=== PATIENT | female | born 1940 | race Caucasian/White ===

== ENCOUNTER 2016-03-17 09:24 | Inpatient (IN) | payer MEDICARE ==
[2016-03-17 09:57] LABS: Add Diff/Slide Review? Slide Review Added; Comments Flag Yes; Hematocrit 43 % (35-47); Hemoglobin 13.9 g/dl (12.0-16.0); Mean Corpuscular HGB Conc 33 g/dl (31-36); Mean Corpuscular Hemoglobin 28 pg (27-31); Mean Corpuscular Volume 87 fL (80-97); Mean Platelet Volume 7 um3 (7.4-10.4); Red Blood Count 4.92 10^6/ul (4.0-5.4); Red Cell Distribution Width 14 % (10.5-15); White Blood Count 11.3 10^3/ul (3.5-10.8)
[2016-03-17] MEDS ORDERED: nitroGLYCERIN DRIP* 25,000 MCG in PREMIX* 0 ML IV ONE (09:58)
[2016-03-17] MEDS ORDERED: Furosemide IV* 10 MG/ML VIAL (40 MG) IV ONE ×3 (09:59→20:00)
--- NOTE | 2016-03-17 10:11 | RAD ---
Indication: Shortness of breath and weakness. Intermittent wheezing. Comparison: March 14, 2016 CT. Technique: Upright AP 0948 hours Report: Approximate 5 cm mass in the RIGHT upper lung zone. Bilateral patchy airspace consolidation and diffuse severe micronodular prominence of interstitial markings. Grossly clear pleural spaces. Negative for pneumothorax. Mild cardiomegaly. Prominent central pulmonary vasculature. IMPRESSION: 1. Large RIGHT upper lobe mass. 2. Diffuse and uniform micronodular interstitial pattern. Consider bronchopneumonia, endobronchial spread of atypical pathogens including TB, metastatic disease, and hypersensitivity pneumonitis. 3. Pulmonary vascular congestion not excluded.
[2016-03-17 10:13] LABS: FIO2 100
[2016-03-17 10:14] LABS: Albumin 3.6 g/dL (3.2-5.2); BUN/Creatinine Ratio 19.3 (8-20); Calcium 8.9 mg/dL (8.6-10.3); EGFR African American 132.6 (>60); EGFR Non-African American 103.1 (>60); Globulin 3.5 g/dL (2-4); Potassium 3.6 mmol/L (3.5-5.0); Total Bilirubin 0.9 mg/dL (0.2-1.0); Total Protein 7.1 g/dL (6.4-8.9)
[2016-03-17 10:17] LABS: PCO2 Arterial 45 mmHg (35-45)
[2016-03-17 10:20] LABS: Troponin I 1.23 ng/mL (<0.04)
[2016-03-17] MEDS ORDERED: LORazepam INJ* 2 MG/ML 1 ML VIAL ONE (10:20)
[2016-03-17 11:08] LABS: EPAP 5; FIO2 100; IPAP 14; Resp Rate 14
[2016-03-17 11:12] LABS: PCO2 Arterial 40 mmHg (35-45)
[2016-03-17 12:59] LABS: Troponin I 1.41 ng/mL (<0.04)
[2016-03-17] MEDS: Morphine INJ* 2 MG/ML 1 ML CARPUJECT IV PRN (13:05)
[2016-03-17] MEDS ORDERED: Albuterol 2.5 MG/3 ML NEB.SOL* (0.083%) INH PRN (13:24)
[2016-03-17] MEDS ORDERED: Aspirin Low Dose CHEW TAB* 81 MG PO ONE (13:27)
--- NOTE | 2016-03-17 13:59 | HP ---
H&P (Free Text) History and Physical: CRITICAL CARE MEDICINE DATE: 03/17/16 TIME: 1225 PRIMARY CARE PROVIDER: ELVA Hui REFERRING PROVIDER: Paulo REASON/CHIEF COMPLAINT: sob HISTORY OF PRESENT ILLNESS: 75 F with underlying copd and recent admission and dc post copd exac with concerning infilitrative lung disease, potential metastatic disease, who stabilzed and was discharged with outpt pulm referral, however re-presenting with sob and hypoxic resp failure. Placed on bipap in ED. concern for ACS as well as troponin positive. ICU consulted REVIEW OF SYSTEMS: As per HPI. PAST MEDICAL HISTORY: As per HPI. HTN, constipation, DJD, right ELLIOT, anxiety, depression with recent loss of spouse MEDICATIONS: Reviewed. ALLERGIES: NSAIDS, statins SOCIAL HISTORY: Reviewed. FAMILY HISTORY: Noncontributory at present. PHYSICAL EXAM: Vital Signs: Reviewed. Hr 70s. RR 20s, on bipap 100% with sats hovering in low 90s. SBP 100-130s Neurologic: awake, communicating, nonfocal HEENT: anicteric, perrl Cardiovascular: distant, S1 S2 Respiratory: fine crackles b/l Abdomen: obese, soft, nt Extremities: post R hip replacement scarring; no edema Access: per LABS: Reviewed. IMAGING: Reviewed. ECG with mild ST ant-lat changes, not much change from baseline. CXR with worsening disease on top of existing. Ct reviewed. MEDICATIONS: Reviewed. ASSESSMENT: 75 F with acute hypoxic resp failure Underlying copd, with some declining disease, but with concern for metastatic lung ca? liver and spinal lesions? Poor diffusion gradient and lymphatic spread NSTEMI sec to demand ischemia PLAN: Neurologic: awake, communicating. advocated low dose morphine to support Cardiovascular: Perfusing, but demand is high. Volume status not grossly overloaded but need to maintain less interstial water and already recieved lasix. Keep asa and consider lovenox tx for 48h, but again more likely demand. Can obtain echo. Cards consult if something changing dramatically with troponin but otherwise would not pursue any acute interventions at this time. Respiratory: bipap currently. discussed with pt and family briefly who state pt has a molst with dDNR and believed DNI, but would confer as she wasn't 100% sure of her wishes at the present. See if we can convert her to HFO2 if her oxygenation and wob can stabilize. Her course is worrisome. Gastrointestinal: npo for the moment and see if her resp status is conducive to diet later today Renal/Metabolic: lasix for now. Infectious Disease: no infective signs. Hematology: stable. asa. Endocrine: reactive hyperglycemia. f/u Musculoskeletal: bedrest at moment and then progress Psych/Social: family at bedside. Pt expresses that her son would make medical decisions for her is she is unable too. ( was prior proxy) Supportive and preventative care as ordered. SUP: po VTE prophylaxis: heparin Disposition: ICU Code Status: DNR Critical Care Time: 45min FRichard Burr DO
--- NOTE | 2016-03-17 14:38 | PN ---
Progress Note - Progress Note Note: CRITICAL CARE MEDICINE DATE: 03/17/16 TIME: 1424 Discussed diagnosis and px with pt, now on vapotherm. She feels better. Remains with generalized depression and sadness. Explained utility of bipap and vapotherm uses. We discussed again DNR/DNI which she agrees with. More family will be coming up. Disposition: ICU Code Status: DNR/DNR Critical Care Time: 10min FRichard Burr, DO
[2016-03-17] MEDS: Potassium Chlor TAB* 20 MEQ TAB.ER PO SCH ×2 (15:36→17:04)
--- NOTE | 2016-03-17 16:27 | ECHO ---
Patient: JACE DEL REAL [facility] Rec#: [id number] : 1940 Date: 03/17/2016 Age: 75y Height: 167 cm / 65.7 in Weight: 90 kg / 198.4 lbs Sex: F BSA: 1.99 Room#: [facility] Admit Date#: 03/17/2016 Type: Inpatient Referring: Malick Burr Reading: Mike Nolan DO Reading: Mike Nolan DO Pecan Grower: Winston Voss RDCS Transthoracic Echocardiogram Indication: NSTEMI BP: 93/47 HR: 72 Rhythm: NSR Findings History: SOB,Hypoxic respiratory failure Technical Comments: The study quality is fair. Completed 1530 Left Ventricle: The left ventricular chamber size is normal. There is no left ventricular hypertrophy. There is normal left ventricular systolic function.There are no obvious segmental wall motion abnormalities noted. The apical segments endocardium is suboptimally visualized. The estimated ejection fraction is 55-60%. Normal left atrial size makes clinically significant diastolic dysfunction unlikely. Left Atrium: The left atrial chamber size is normal. Right Ventricle: The right ventricular chamber size and systolic function are within normal limits. Right Atrium: The right atrial cavity size is normal. Aortic Valve: The aortic valve is trileaflet. There is no evidence of aortic regurgitation. There is no evidence of aortic stenosis. Mitral Valve: The mitral valve leaflets appear normal. There is no evidence of mitral regurgitation. There is no evidence of mitral stenosis. Tricuspid Valve: The tricuspid valve appears normal in structure and function. There is trace tricuspid regurgitation. Unable to estimate the right ventricular systolic pressure. Pulmonic Valve: The pulmonic valve appears normal. There is no evidence of pulmonic regurgitation. There is no pulmonic stenosis. Pericardium: There is no significant pericardial effusion. A pericardial fat pad is visualized. Aorta: There is no dilatation of the ascending aorta. There is no dilatation of the aortic arch. There is no dilation of the aortic root. Pulmonary Artery: The main pulmonary artery is not well visualized. Venous: The inferior vena cava appears normal in size. There is a greater than 50% respiratory change in the inferior vena cava dimension. Conclusions The left ventricular chamber size is normal. There is no left ventricular hypertrophy. The estimated LV ejection fraction is normal at 55-60%. Normal left atrial size No significant valvular abnormalities noted. The right ventricular chamber size and systolic function are within normal limits. Unable to estimate the right ventricular systolic pressure. No prior studies available for comparison at time of interpretation. Measurements Name Value Normal Range RVIDd (AP) 2D 1.9 cm (0.9 - 2.6) RAd ISD 4CH 4 cm (3.4 - 4.9) RA (A4C)W 2.6 cm (2.9 - 4.6) IVSd (2D) 1 cm (0.6 - 1) LVPWd (2D) 0.7 cm (0.6 - 1) LVIDd (2D) 4.2 cm (3.6 - 5.4) LVIDs (2D) 3 cm - LV FS (2D) 28 % (25 - 45) Aortic Annulus 1.8 cm (1.4 - 2.6) Ao root diameter (2D) 2.6 cm (2.1 - 3.5) Ascending Ao 2.5 cm (2.1 - 3.4) Aortic arch 2.3 cm (1.8 - 3.4) LA dimension (AP) 2D 3.7 cm (2.3 - 3.8) LAd ISD 4CH 4.3 cm (2.9 - 5.3) LA ISD 4CH W 2.5 cm (2.5 - 4.5) Name Value Normal Range LA ESV SP 4CH (A/L) 17 ml - LA ESV SP 2CH (A/L) 44 ml - LA ESV BP (A/L) 27 ml - LA ESV BP (A/L) index 13.61 ml/m2 - LA ESV SP 4CH (MOD) 16 ml - LA ESV SP 2CH (MOD) 41 ml - Name Value Normal Range MV E-wave Vmax 0.6 m/sec - MV deceleration time 175 msec - MV A-wave Vmax 0.84 m/sec - MV E:A ratio 0.77 ratio - LV septal e' Vmax 0.05 m/sec - LV lateral e' Vmax 0.06 m/sec - LV E:e' septal ratio 1.2 ratio - LV E:e' lateral ratio 1 ratio - Name Value Normal Range AV Vmax 1.5 m/sec - LVOT diameter 1.7 cm - Name Value Normal Range IVC diameter 0.99 cm - Name Value Normal Range PV Vmax 0.73 m/sec - PV peak gradient 2.13 mmHg -
[2016-03-18 05:56] LABS: Hematocrit 39 % (35-47); Hemoglobin 12.7 g/dl (12.0-16.0); Mean Corpuscular HGB Conc 33 g/dl (31-36); Mean Corpuscular Hemoglobin 28 pg (27-31); Mean Corpuscular Volume 86 fL (80-97); Mean Platelet Volume 7 um3 (7.4-10.4); Red Blood Count 4.49 10^6/ul (4.0-5.4); Red Cell Distribution Width 14 % (10.5-15); White Blood Count 11.4 10^3/ul (3.5-10.8)
[2016-03-18 06:15] LABS: BUN/Creatinine Ratio 28.4 (8-20); Calcium 9.2 mg/dL (8.6-10.3); EGFR African American 110.1 (>60); EGFR Non-African American 85.6 (>60); Magnesium 1.9 mg/dL (1.9-2.7); Phosphorus 3.1 mg/dL (2.5-5.0)
[2016-03-18 06:18] LABS: Troponin I 0.93 ng/mL (<0.04)
[2016-03-18] MEDS ORDERED: Spiriva Inhaler DEVICE* 1 EACH DEVICE ONE (09:00)
[2016-03-18] MEDS: Sertraline* 100 MG TAB PO SCH (09:36)
[2016-03-18] MEDS: Tiotropium CAP.INH* CAP.INH/18 MCG (USE ORDER SET !) INH SCH (09:36)
[2016-03-18] MEDS: Furosemide IV* 10 MG/ML VIAL (40 MG) IV SCH (12:37)
--- NOTE | 2016-03-18 13:12 | PN ---
Progress Note - Progress Note Note: CRITICAL CARE MEDICINE DATE: 03/18/16 TIME: 1250 SUBJECTIVE: Patient seen and examined. PHYSICAL EXAM: Vital Signs: Reviewed. Hr 80s. RR 20s, on vapotherm 100% 40lpm with sats hovering in low 90s to high 80s. Neurologic: awake, communicating, holds capacity HEENT: anicteric, perrl Cardiovascular: distant, S1 S2 Respiratory: fine distant crackles b/l Abdomen: obese, soft, nt Extremities: no edema Access: per LABS: Reviewed. IMAGING: Reviewed. MEDICATIONS: Reviewed. ASSESSMENT: 75 F with acute hypoxic resp failure Underlying copd, with some declining disease, but with concern for widely metastatic lung cancer with liver and spinal tumors NSTEMI sec to demand ischemia Depression PLAN: Neurologic: awake, communicating. advocated low dose morphine to support Cardiovascular: Perfusing and less demand, but still high. Volume status needing to be optimized with further diuretic. echo ok and trop down. asa not even prudent with her disease. Respiratory: continued on HFO2 and bipap tonight, as long as she desires. If she declines, then would not use it further. Gastrointestinal: po diet; comfort food as able not going to meet requirements Renal/Metabolic: lasix again and then probably hold further Infectious Disease: no infective signs. abx not needed Hematology: stable. Endocrine: reactive hyperglycemia ok. Trial steroids to see if any benefit or relief. Musculoskeletal: oob. Psych/Social: family at bedside. Explained dynamics and fears again. Pt gets emotional and appropriately so. D/w her sons further as well and explained I was not expecting her to make it. Have time at the moment with support but likely to be to no avail. Would like to see if she can maintain beyond felix , but even that is unlikely. Supportive and preventative care as ordered. SUP: po VTE prophylaxis: heparin Disposition: ICU Code Status: DNR/DNI Critical Care Time: 35min Filiberto Burr DO
[2016-03-18] MEDS: methylPREDNISolone 125 MG* 2 ML VIAL IV SCH ×2 (14:41→21:16)
[2016-03-18] MEDS: Enoxaparin(*) 40 MG/0.4 ML SYR SUBCUT SCH (14:41)
[2016-03-18] MEDS: Acetaminophen TAB* 325 MG PO PRN ×2 (14:41)
[2016-03-18] MEDS: Aspirin EC Low Dose* 81 MG TAB.EC PO SCH (14:42)
[2016-03-18] MEDS: ALPRAZolam TAB* 0.25 MG PO PRN (21:17)
[2016-03-19] MEDS: diPHENhydraMINE PO* 50 MG PO PRN ×2 (00:53→21:18)
[2016-03-19] MEDS: methylPREDNISolone 125 MG* 2 ML VIAL IV SCH ×3 (05:24→21:18)
[2016-03-19] MEDS: Aspirin EC Low Dose* 81 MG TAB.EC PO SCH (08:41)
[2016-03-19] MEDS: Tiotropium CAP.INH* CAP.INH/18 MCG (USE ORDER SET !) INH SCH (08:41)
[2016-03-19] MEDS: Sertraline* 100 MG TAB PO SCH (08:42)
[2016-03-19] MEDS: Furosemide IV* 10 MG/ML VIAL (40 MG) IV SCH (08:42)
--- NOTE | 2016-03-19 10:33 | PN ---
Progress Note - Progress Note Note: CRITICAL CARE MEDICINE DATE: 03/19/16 TIME: 935 SUBJECTIVE: Patient seen and examined. Son and daughter in law at bedside. PHYSICAL EXAM: looks a touch better Vital Signs: Reviewed. Hr 70s. RR 20s, on vapotherm 100% 40lpm with sats low 90s. Neurologic: awake, communicating, holds capacity. HEENT: anicteric Cardiovascular: distant, S1 S2 Respiratory: distant, no rales Abdomen: obese, soft, nt Extremities: no palpable edema Access: per LABS: Reviewed. IMAGING: Reviewed. MEDICATIONS: Reviewed. ASSESSMENT: 75 F with acute hypoxic resp failure Underlying copd, with some declining disease, but with concern for widely metastatic lung cancer with liver and spinal tumors NSTEMI sec to demand ischemia Depression PLAN: Neurologic: low dose morphine and or xanax as needed. Cardiovascular: Perfusing and vol status ok. Respiratory: Continued on HFO2 with no wean today. can attempt gentle wean this weekend if able to tolerate. no further bipap. Gastrointestinal: po diet Renal/Metabolic: lasix today but Uout falling off and not going to gain much advantage now and renal function may be feeling her hypoxia gradient Infectious Disease: no infective signs. Hematology: stable. as explained to family, no ability nor benefit in pursing Ca workup at present, unless she were to improve. Endocrine: Continued trial steroids which may be having her feeling a touch better. Musculoskeletal: oob. Psych/Social: family at bedside. Pt expresses understanding of plans. Supportive and preventative care as ordered. SUP: po VTE prophylaxis: lovenox Disposition: ICU Code Status: DNR/DNI Critical Care Time: 25min Filiberto Burr DO
[2016-03-19] MEDS: Enoxaparin(*) 40 MG/0.4 ML SYR SUBCUT SCH (16:11)
[2016-03-19] MEDS: Acetaminophen TAB* 325 MG PO PRN (19:23)
[2016-03-19] MEDS: ALPRAZolam TAB* 0.25 MG PO PRN (23:48)
[2016-03-20 05:16] LABS: Hematocrit 40 % (35-47); Hemoglobin 13.3 g/dl (12.0-16.0); Mean Corpuscular HGB Conc 33 g/dl (31-36); Mean Corpuscular Hemoglobin 29 pg (27-31); Mean Corpuscular Volume 86 fL (80-97); Mean Platelet Volume 8 um3 (7.4-10.4); Red Blood Count 4.66 10^6/ul (4.0-5.4); Red Cell Distribution Width 14 % (10.5-15); White Blood Count 18.5 10^3/ul (3.5-10.8)
[2016-03-20] MEDS: methylPREDNISolone 125 MG* 2 ML VIAL IV SCH (05:23)
[2016-03-20 05:27] LABS: BUN/Creatinine Ratio 55.9 (8-20); Calcium 9.1 mg/dL (8.6-10.3); EGFR African American 108.2 (>60); EGFR Non-African American 84.1 (>60); Magnesium 2.1 mg/dL (1.9-2.7); Phosphorus 3.7 mg/dL (2.5-5.0); Potassium 4.3 mmol/L (3.5-5.0)
[2016-03-20] MEDS: Tiotropium CAP.INH* CAP.INH/18 MCG (USE ORDER SET !) INH SCH (08:51)
[2016-03-20] MEDS: Aspirin EC Low Dose* 81 MG TAB.EC PO SCH (09:35)
[2016-03-20] MEDS: Acetaminophen TAB* 325 MG PO PRN (09:35)
[2016-03-20] MEDS: Sertraline* 100 MG TAB PO SCH (09:35)
--- NOTE | 2016-03-20 10:27 | PN ---
Progress Note - Progress Note Note: CRITICAL CARE MEDICINE DATE: 03/20/16 TIME: 835 SUBJECTIVE: Patient seen and examined. Feels ok but not much sleep. PHYSICAL EXAM: same Vital Signs: Reviewed. Hr 70s. RR 20s, on vapotherm 100% 40 lpm with sats low 90s - changed to 35lpm. Neurologic: awake, communicating, pleasant, holds capacity. HEENT: anicteric Cardiovascular: distant, S1 S2 Respiratory: distant, no rales Abdomen: obese, soft, nt Extremities: no palpable edema Access: per LABS: Reviewed. IMAGING: Reviewed. MEDICATIONS: Reviewed. ASSESSMENT: 75 F with acute hypoxic resp failure widely metastatic lung cancer with liver and spinal tumors copd NSTEMI sec to demand ischemia Depression PLAN: Neurologic: low dose morphine/xanax prn - advised her to utilize Cardiovascular: Perfusing and vol status ok to dry. dec vs checks Respiratory: Continued on HFO2 and gentle wean to not inc wob. no further bipap. Gastrointestinal: po diet encouraged Renal/Metabolic: hold off on lasix. bun up sec to lasix and steroids Infectious Disease: no infective signs. Hematology: stable. Endocrine: to prednisone. Musculoskeletal: oob. on feet as able. Psych/Social: family up to date. allow them to enjoy the weekend Supportive and preventative care as ordered. SUP: po VTE prophylaxis: lovenox Disposition: ICU Code Status: DNR/DNI Critical Care Time: 25min FRichard Burr DO
[2016-03-20] MEDS: predniSONE TAB* 20 MG PO SCH (14:49)
[2016-03-20] MEDS: Enoxaparin(*) 40 MG/0.4 ML SYR SUBCUT SCH (15:26)
--- NOTE | 2016-03-20 15:46 | ED ---
Gabriel Abraham Matthew, scribed for Italo Means MD on 03/17/16 at 0947 . Shortness of Breath - HPI Summary HPI Summary: A 75 y/o female presents to the ED with constant SOB since 03/15. The patient has been using 5L of home oxygen. The pain is rated 0/10 in severity. Associated symptoms include cough - brown phlegm. The patient denies any pain, fever, chest pain, and chills. She was recently seen in the ED for hypoxia on . At that time a CT revealed a right lobe lung mass. She is a former smoker. - History of Current Complaint Chief Complaint: EDWeakness Hx Obtained From: Patient Onset/Duration: Gradual Onset, Lasting Days, Still Present Timing: Constant Current Severity: Moderate Dyspnea At: Rest Aggrevating Factors: Nothing Alleviating Factors: Nothing Associated Signs & Symptoms: Cough (Productive) - Allergy/Home Medications Allergies/Adverse Reactions: Allergies Allergy/AdvReac Type Severity Reaction Status Date / Time NSAIDs Allergy Bleeding Verified 03/17/16 10:04 Statins Allergy Leg Cramps Verified 03/17/16 10:04 PMH/Surg Hx/FS Hx/Imm Hx Endocrine/Hematology History: Denies: Hx Diabetes Cardiovascular History: Reports: Hx Hypertension Denies: Hx Pacemaker/ICD Respiratory History: Reports: Hx Chronic Obstructive Pulmonary Disease (COPD), Hx Pneumonia, Other Respiratory Problems/Disorders - WHEEZING SOMETIMES AT NIGHT Denies: Hx Asthma GI History: Reports: Hx Gastroesophageal Reflux Disease History: Reports: Other Problems/Disorders - Stress Incontinence Denies: Hx Renal Disease Musculoskeletal History: Reports: Hx Arthritis, Hx Back Problems - L sciatica Sensory History: Reports: Hx Contacts or Glasses Denies: Hx Hearing Aid Opthamlomology History: Reports: Hx Contacts or Glasses Psychiatric History: Reports: Hx Anxiety - panic attack to ED 12/14/13, Hx Depression Denies: Hx Panic Disorder - Surgical History Surgery Procedure, Year, and Place: T AND A, APENDIX 1970. Right total hip October 2013 Hx Anesthesia Reactions: Yes - SPINAL FOR 3RD CHILD- HEADACHE FOR 2 MONTHS - Family History Family History: no malignant hyperthermia and anesthesia reaction - Social History Alcohol Use: None Substance Use Type: Reports: Prescribed Smoking Status (MU): Former Smoker Type: Cigarettes Amount Used/How Often: 1 PPD X 40 YEARS Length of Time of Smoking/Using Tobacco: 40 years Have You Smoked in the Last Year: No Review of Systems Constitutional: Negative Negative: Fever, Chills Eyes: Negative ENT: Negative Cardiovascular: Negative Negative: Chest Pain Positive: Shortness Of Breath, Cough - brown phlegm Gastrointestinal: Negative Genitourinary: Negative Musculoskeletal: Negative Skin: Negative Neurological: Negative Psychological: Normal All Other Systems Reviewed And Are Negative: Yes Physical Exam - Summary Physical Exam Summary: GENERAL: Awake, alert, oriented, no acute distress, very pleasant. Normal Phonation. HEENT: Head is normocephalic, atraumatic, anicteric sclera, clear conjunctiva, mucous membranes moist, no erythema, no discharge, no lesions, neck is supple, trachea is midline, no JVD CARDIAC: Regular rate and rhythm, S1, S2, no rub, no murmur, no gallop, 2+ radial and pedal pulses bilaterally RESPIRATORY: Breath Sounds presents with diffuse rales. The patient is tachypneic. ABDOMEN: Bowel sounds positive, no bruit, soft, non-tender, no CVA tenderness EXTREMITIES: No edema, warm, dry, moving all extremities in a grossly normal manner NEUROLOGICAL: Mood is appropriate, moving all extremities in a grossly normal manner Triage Information Reviewed: Yes Vital Signs On Initial Exam: Temp Pulse Resp BP Pulse Ox 97.6 F 79 30 137/58 89 03/17/16 09:30 03/17/16 09:30 03/17/16 09:30 03/17/16 09:30 03/17/16 09:30 Vital Signs Reviewed: Yes Diagnostics - Vital Signs Vital Signs Temp Pulse Resp BP Pulse Ox 03/17/16 11:25 99.9 F 83 28 115/57 89 03/17/16 11:20 99.9 F 81 29 118/61 90 03/17/16 11:07 99.9 F 80 27 90 03/17/16 10:36 89 18 86 03/17/16 09:55 97.6 F 86 32 132/68 88 03/17/16 09:30 97.6 F 79 30 137/58 89 - Laboratory Lab Results: Lab Results 03/17/16 03/17/16 03/17/16 Range/Units 09:40 09:40 09:40 WBC 11.3 H (3.5-10.8) 10^3/ul RBC 4.92 (4.0-5.4) 10^6/ul Hgb 13.9 (12.0-16.0) g/dl Hct 43 (35-47) % MCV 87 (80-97) fL MCH 28 (27-31) pg MCHC 33 (31-36) g/dl RDW 14 (10.5-15) % Plt Count 236 (150-450) 10^3/ul MPV 7 L (7.4-10.4) um3 Neut % (Auto) 86.7 H (38-83) % Lymph % (Auto) 5.1 L (25-47) % [place] % (Auto) 6.2 (1-9) % Eos % (Auto) 1.5 (0-6) % Baso % (Auto) 0.5 (0-2) % Absolute Neuts (auto) 9.7 H (1.5-7.7) 10^3/ul Absolute Lymphs (auto) 0.6 L (1.0-4.8) 10^3/ul Absolute Monos (auto) 0.7 (0-0.8) 10^3/ul Absolute Eos (auto) 0.2 (0-0.6) 10^3/ul Absolute Basos (auto) 0.1 (0-0.2) 10^3/ul Absolute Nucleated RBC 0 10^3/ul Nucleated RBC % 0 INR (Anticoag Therapy) 1.07 (0.89-1.11) APTT 27.0 (26.0-36.3) seconds Patient Temperature ABG pH (7.35-7.45) ABG pCO2 (35-45) mmHg ABG pO2 (80-100) mmHg ABG HCO3 (19-31) mmol/L ABG O2 Saturation (95-98) % ABG Base Excess (-2.0-2.0) Respiration Rate O2 Delivery Device Ventilator Type Vent Mode FiO2 Inspiratory Time PEEP Pressure Support Pressure Control EPAP IPAP BiPAP Sodium 136 (133-145) mmol/L Potassium 3.6 (3.5-5.0) mmol/L Chloride 102 (101-111) mmol/L Carbon Dioxide 26 (22-32) mmol/L Anion Gap 8 (2-11) mmol/L BUN 11 (6-24) mg/dL Creatinine 0.57 (0.51-0.95) mg/dL Est GFR ( Amer) 132.6 (>60) Est GFR (Non-Af Amer) 103.1 (>60) BUN/Creatinine Ratio 19.3 (8-20) Glucose 159 H (70-100) mg/dL Lactic Acid (0.5-2.0) mmol/L Calcium 8.9 (8.6-10.3) mg/dL Total Bilirubin 0.90 (0.2-1.0) mg/dL AST 25 (13-39) U/L ALT 12 (7-52) U/L Alkaline Phosphatase 124 H (34-104) U/L Total Creatine Kinase 73 (10-223) U/L Troponin I 1.23 H* (<0.04) ng/mL B-Natriuretic Peptide ( - 100) pg/mL Total Protein 7.1 (6.4-8.9) g/dL Albumin 3.6 (3.2-5.2) g/dL Globulin 3.5 (2-4) g/dL Albumin/Globulin Ratio 1.0 (1-3) 03/17/16 03/17/16 03/17/16 Range/Units 09:40 09:40 10:02 WBC (3.5-10.8) 10^3/ul RBC (4.0-5.4) 10^6/ul Hgb (12.0-16.0) g/dl Hct (35-47) % MCV (80-97) fL MCH (27-31) pg MCHC (31-36) g/dl RDW (10.5-15) % Plt Count (150-450) 10^3/ul MPV (7.4-10.4) um3 Neut % (Auto) (38-83) % Lymph % (Auto) (25-47) % [place] % (Auto) (1-9) % Eos % (Auto) (0-6) % Baso % (Auto) (0-2) % Absolute Neuts (auto) (1.5-7.7) 10^3/ul Absolute Lymphs (auto) (1.0-4.8) 10^3/ul Absolute Monos (auto) (0-0.8) 10^3/ul Absolute Eos (auto) (0-0.6) 10^3/ul Absolute Basos (auto) (0-0.2) 10^3/ul Absolute Nucleated RBC 10^3/ul Nucleated RBC % INR (Anticoag Therapy) (0.89-1.11) APTT (26.0-36.3) seconds Patient Temperature Not Reportable ABG pH 7.42 (7.35-7.45) ABG pCO2 45 (35-45) mmHg ABG pO2 54 L* (80-100) mmHg ABG HCO3 27.7 (19-31) mmol/L ABG O2 Saturation 89.7 L (95-98) % ABG Base Excess 4.0 H (-2.0-2.0) Respiration Rate Not Reportable O2 Delivery Device nrb Ventilator Type Not Reportable Vent Mode Not Reportable FiO2 100 Inspiratory Time Not Reportable PEEP Not Reportable Pressure Support Not Reportable Pressure Control Not Reportable EPAP Not Reportable IPAP Not Reportable BiPAP Not Reportable Sodium (133-145) mmol/L Potassium (3.5-5.0) mmol/L Chloride (101-111) mmol/L Carbon Dioxide (22-32) mmol/L Anion Gap (2-11) mmol/L BUN (6-24) mg/dL Creatinine (0.51-0.95) mg/dL Est GFR ( Amer) (>60) Est GFR (Non-Af Amer) (>60) BUN/Creatinine Ratio (8-20) Glucose (70-100) mg/dL Lactic Acid 1.2 (0.5-2.0) mmol/L Calcium (8.6-10.3) mg/dL Total Bilirubin (0.2-1.0) mg/dL AST (13-39) U/L ALT (7-52) U/L Alkaline Phosphatase (34-104) U/L Total Creatine Kinase (10-223) U/L Troponin I (<0.04) ng/mL B-Natriuretic Peptide 157 H ( - 100) pg/mL Total Protein (6.4-8.9) g/dL Albumin (3.2-5.2) g/dL Globulin (2-4) g/dL Albumin/Globulin Ratio (1-3) //16 Range/Units 11:08 WBC (3.5-10.8) 10^3/ul RBC (4.0-5.4) 10^6/ul Hgb (12.0-16.0) g/dl Hct (35-47) % MCV (80-97) fL MCH (27-31) pg MCHC (31-36) g/dl RDW (10.5-15) % Plt Count (150-450) 10^3/ul MPV (7.4-10.4) um3 Neut % (Auto) (38-83) % Lymph % (Auto) (25-47) % [place] % (Auto) (1-9) % Eos % (Auto) (0-6) % Baso % (Auto) (0-2) % Absolute Neuts (auto) (1.5-7.7) 10^3/ul Absolute Lymphs (auto) (1.0-4.8) 10^3/ul Absolute Monos (auto) (0-0.8) 10^3/ul Absolute Eos (auto) (0-0.6) 10^3/ul Absolute Basos (auto) (0-0.2) 10^3/ul Absolute Nucleated RBC 10^3/ul Nucleated RBC % INR (Anticoag Therapy) (0.89-1.11) APTT (26.0-36.3) seconds Patient Temperature Not Reportable ABG pH 7.41 (7.35-7.45) ABG pCO2 40 (35-45) mmHg ABG pO2 63 L (80-100) mmHg ABG HCO3 25.3 (19-31) mmol/L ABG O2 Saturation 94.3 L (95-98) % ABG Base Excess 0.7 (-2.0-2.0) Respiration Rate 14 O2 Delivery Device Ventilator Type Not Reportable Vent Mode st FiO2 100 Inspiratory Time Not Reportable PEEP Not Reportable Pressure Support Not Reportable Pressure Control Not Reportable EPAP 5 IPAP 14 BiPAP Not Reportable Sodium (133-145) mmol/L Potassium (3.5-5.0) mmol/L Chloride (101-111) mmol/L Carbon Dioxide (22-32) mmol/L Anion Gap (2-11) mmol/L BUN (6-24) mg/dL Creatinine (0.51-0.95) mg/dL Est GFR ( Amer) (>60) Est GFR (Non-Af Amer) (>60) BUN/Creatinine Ratio (8-20) Glucose (70-100) mg/dL Lactic Acid (0.5-2.0) mmol/L Calcium (8.6-10.3) mg/dL Total Bilirubin (0.2-1.0) mg/dL AST (13-39) U/L ALT (7-52) U/L Alkaline Phosphatase (34-104) U/L Total Creatine Kinase (10-223) U/L Troponin I (<0.04) ng/mL B-Natriuretic Peptide ( - 100) pg/mL Total Protein (6.4-8.9) g/dL Albumin (3.2-5.2) g/dL Globulin (2-4) g/dL Albumin/Globulin Ratio (1-3) Result Diagrams: 03/20/16 05:00 03/20/16 05:00 Lab Statement: Any lab studies that have been ordered have been reviewed, and results considered in the medical decision making process. - Radiology CXR Xray Interpretation: Positive (See Comments) - IMPRESSION: 1. Large RIGHT upper lobe mass. 2. Diffuse and uniform micronodular interstitial pattern. Consider bronchopneumonia, endobronchial spread of atypical pathogens including TB, metastatic disease, and hypersensitivity pneumonitis. 3. Pulmonary vascular congestion not excluded. Radiology Interpretation Completed By: Radiologist - EKG 09:30 Cardiac Rate: NL - 79 bpm EKG Rhythm: Sinus Rhythm EKG Interpretation: T Wave Inversion V3; Flattened T Waves in V4,V5,V6; Biphasic in V2; 10:37 Cardiac Rate: NL - 82 bpm EKG Rhythm: Sinus Rhythm EKG Interpretation: Minimal ST elevation Course/Dx - Course Assessment/Plan: A 75 y/o female presents to the ED with SOB. The patient denies any pain, fever, chest pain, and chills. EKG shows T Wave Inversion V3; Flattened T Waves in V4,V5,V6; Biphasic in V2. Repeat EKG shows minimal ST elevation. Labs were reviewed and show an elevated Troponin level of 1.23. CXR reveals Large RIGHT upper lobe mass and diffuse and uniform micronodular interstitial pattern. The case was discussed with Dr. Wills who will admit the patient and Dr. Nolan who recommended a repeat troponin in one hour. - Diagnoses Provider Diagnoses: chf - Physician Notifications Discussed Care of Patient With: Dr. Wills (Hospitalist) at 10:00 -- Notified of patient's history and will admit the patient. Dr. Nolan (Vamp Throater) at 10:32 -- Notified of patient's history and recommneds another Troponin in 1 hour. Discharge - Discharge Plan Condition: Stable Disposition: ADMITTED TO [facility] The documentation as recorded by the Gabriel phan Matthew accurately reflects the service I personally performed and the decisions made by , Italo Means MD.
[2016-03-20] MEDS: diPHENhydraMINE PO* 50 MG PO PRN (21:05)
[2016-03-20] MEDS: ALPRAZolam TAB* 0.25 MG PO PRN (21:06)
[2016-03-21] MEDS: Tiotropium CAP.INH* CAP.INH/18 MCG (USE ORDER SET !) INH SCH (07:34)
[2016-03-21] MEDS: predniSONE TAB* 20 MG PO SCH (09:35)
[2016-03-21] MEDS: Sertraline* 100 MG TAB PO SCH (09:35)
[2016-03-21] MEDS: Aspirin EC Low Dose* 81 MG TAB.EC PO SCH (09:35)
--- NOTE | 2016-03-21 10:20 | PN ---
Progress Note - Progress Note Note: CRITICAL CARE MEDICINE DATE: 03/21/16 TIME: 825 SUBJECTIVE: Patient seen and examined. Feels ok but still not much sleep. PHYSICAL EXAM: same Vital Signs: Reviewed. Hr 70s. RR 20s, on vapotherm 100% 30 lpm with sats mid 90s Neurologic: awake, communicating, pleasant, holds capacity. HEENT: anicteric Cardiovascular: distant, S1 S2 Respiratory: distant, no rales Abdomen: obese, soft, nt Extremities: no palpable edema Access: per LABS: Reviewed. IMAGING: Reviewed. MEDICATIONS: Reviewed. 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 try trazadone tonight Cardiovascular: Perfusing and vol status ok. Respiratory: HFO2 slow wean, but happy to see we are actually weaning. IS. oob. Gastrointestinal: po diet encouraged Renal/Metabolic: f/u labs in another day Infectious Disease: no infective signs. Hematology: stable. Endocrine: prednisone course. Musculoskeletal: oob. Psych/Social: explained to her to enjoy the day and then we can all talk this week about longer term and week plans. Supportive and preventative care as ordered. SUP: po VTE prophylaxis: lovenox Disposition: ICU Code Status: DNR/DNI Critical Care Time: 25min Filiberto Burr DO
[2016-03-21] MEDS: Acetaminophen TAB* 325 MG PO PRN (12:06)
[2016-03-21] MEDS: Enoxaparin(*) 40 MG/0.4 ML SYR SUBCUT SCH (17:41)
[2016-03-21] MEDS: diPHENhydraMINE PO* 50 MG PO PRN (21:28)
[2016-03-22] MEDS: ALPRAZolam TAB* 0.25 MG PO PRN ×3 (00:48→21:26)
[2016-03-22] MEDS: Acetaminophen TAB* 325 MG PO PRN (08:20)
[2016-03-22] MEDS: Sertraline* 100 MG TAB PO SCH (08:20)
[2016-03-22] MEDS: predniSONE TAB* 20 MG PO SCH (08:20)
[2016-03-22] MEDS: Aspirin EC Low Dose* 81 MG TAB.EC PO SCH (08:20)
[2016-03-22] MEDS: Morphine INJ* 2 MG/ML 1 ML CARPUJECT IV PRN ×2 (08:26→21:26)
--- NOTE | 2016-03-22 11:48 | PN ---
Progress Note - Progress Note Note: CRITICAL CARE MEDICINE DATE: 03/22/16 TIME: 930 SUBJECTIVE: Patient seen and examined. Feels ok. PHYSICAL EXAM: same Vital Signs: Reviewed. Hr 70s. RR 20s, on vapotherm 100% downt to 25 lpm with sats low 90s; wob maintained Neurologic: communicating, pleasant, holds capacity. HEENT: anicteric Cardiovascular: distant, S1 S2 Respiratory: distant, no rales Abdomen: obese, soft, nt Extremities: no palpable edema, can appear cyanotic distally Access: per LABS: Reviewed. IMAGING: Reviewed. MEDICATIONS: Reviewed. ASSESSMENT: 75 F with acute hypoxic resp failure widely metastatic lung cancer liver and spinal tumors copd NSTEMI sec to demand ischemia -stable Depression PLAN: Neurologic: low dose morphine/xanax prn. try trazadone tonight Cardiovascular: Perfusing and vol status ok. can hold off on asa given palliative needs Respiratory: HFO2 slow wean continued Gastrointestinal: po diet encouraged Renal/Metabolic: f/u labs in another day Infectious Disease: no infective signs. Hematology: stable. Endocrine: prednisone course. Musculoskeletal: oob. Psych/Social: will re-discuss with her and family today regarding plans of care. ask palliative to eval with hopefully to improve enough to go home on hospice. Supportive and preventative care as ordered. SUP: po VTE prophylaxis: lovenox Disposition: ICU of high floww Code Status: DNR/DNI Critical Care Time: 25min FRichard Burr DO
[2016-03-22] MEDS: Enoxaparin(*) 40 MG/0.4 ML SYR SUBCUT SCH (16:56)
[2016-03-22] MEDS: traZODone TAB* 50 MG TAB PO PRN (22:33)
[2016-03-23] MEDS: predniSONE TAB* 20 MG PO SCH (09:01)
[2016-03-23] MEDS: Morphine ORAL CONCENTRATE* 5 MG/0.25 ML ORAL.SYRIN SL PRN ×3 (09:02→17:00)
[2016-03-23] MEDS: Sertraline* 100 MG TAB PO SCH (09:02)
--- NOTE | 2016-03-23 14:03 | PN ---
Subjective Date of Service: 03/23/16 Interval History: Patient's biggest complaint is she tossed and turned last night. Pain under adequate control. Objective Active Medications: Acetaminophen (Tylenol Tab*) 650 mg PO Q6H PRN PRN Reason: PAIN Last Admin: 03/22/16 08:20 Dose: 650 mg Albuterol (Ventolin 2.5 Mg/3 Ml Neb.Norma*) 2.5 mg INH Q4H PRN PRN Reason: SOB/WHEEZING Alprazolam (Xanax Tab*) 0.25 mg PO TID PRN PRN Reason: ANXIETY Last Admin: 03/22/16 21:26 Dose: 0.25 mg Diphenhydramine HCl (Benadryl Po*) 50 mg PO BEDTIME PRN PRN Reason: SLEEP Last Admin: 03/21/16 21:28 Dose: 50 mg Enoxaparin Sodium (Lovenox(*)) 40 mg SUBCUT Q24H [facility] Last Admin: 03/22/16 16:56 Dose: 40 mg Morphine Sulfate (Morphine Oral Concentrate*) 2.5 mg SL Q2H PRN PRN Reason: PAIN Last Admin: 03/23/16 11:54 Dose: 2.5 mg Morphine Sulfate (Morphine Inj (Syringe)*) 2 mg IV Q1H PRN PRN Reason: PAIN Last Admin: 03/22/16 21:26 Dose: 2 mg Ondansetron HCl (Zofran Inj*) 4 mg IV Q6H PRN PRN Reason: NAUSEA Prednisone (Deltasone Tab*) 40 mg PO DAILY [facility] Last Admin: 03/23/16 09:01 Dose: 40 mg Sertraline HCl (Zoloft*) 100 mg PO DAILY [facility] Last Admin: 03/23/16 09:02 Dose: 100 mg Trazodone HCl (Desyrel Tab*) 50 mg PO BEDTIME PRN PRN Reason: insomnia Last Admin: 03/22/16 22:33 Dose: 50 mg Vital Signs 03/22/16 03/22/16 03/22/16 15:00 15:16 16:00 Temperature 99.0 F Pulse Rate 72 74 Respiratory 22 25 Rate Blood Pressure 127/47 112/54 (mmHg) O2 Sat by Pulse 88 90 Oximetry 03/22/16 03/22/16 03/22/16 16:59 17:00 18:00 Temperature Pulse Rate 79 84 Respiratory 16 20 22 Rate Blood Pressure 143/65 140/68 (mmHg) O2 Sat by Pulse 86 87 Oximetry 03/22/16 03/22/16 03/22/16 19:00 19:40 19:50 Temperature 97.4 F Pulse Rate 89 Respiratory 26 24 Rate Blood Pressure 113/52 (mmHg) O2 Sat by Pulse 85 Oximetry 03/22/16 03/22/16 03/22/16 20:00 21:00 21:26 Temperature Pulse Rate 74 83 Respiratory 24 20 24 Rate Blood Pressure 123/52 121/107 (mmHg) O2 Sat by Pulse 88 80 Oximetry 03/22/16 03/22/16 03/22/16 22:00 23:00 23:02 Temperature Pulse Rate 73 70 68 Respiratory 22 21 22 Rate Blood Pressure 102/53 81/37 75/36 (mmHg) O2 Sat by Pulse 86 86 86 Oximetry 03/22/16 03/22/16 03/22/16 23:04 23:06 23:33 Temperature 97.4 F Pulse Rate 69 70 Respiratory 21 26 Rate Blood Pressure 79/33 91/40 (mmHg) O2 Sat by Pulse 86 86 Oximetry 03/22/16 03/23/16 03/23/16 23:47 00:00 00:01 Temperature Pulse Rate 65 65 Respiratory 20 21 22 Rate Blood Pressure 104/50 (mmHg) O2 Sat by Pulse 88 88 Oximetry 03/23/16 03/23/16 03/23/16 01:00 02:00 03:00 Temperature Pulse Rate 70 64 74 Respiratory 22 23 22 Rate Blood Pressure 101/42 107/50 125/44 (mmHg) O2 Sat by Pulse 90 90 89 Oximetry 03/23/16 03/23/16 03/23/16 03:50 04:00 05:00 Temperature 98.6 F Pulse Rate 73 73 Respiratory 25 25 Rate Blood Pressure 111/41 113/41 (mmHg) O2 Sat by Pulse 84 90 Oximetry 03/23/16 03/23/16 03/23/16 06:00 07:00 07:36 Temperature 97.8 F Pulse Rate 74 75 Respiratory 21 25 Rate Blood Pressure 129/50 111/45 (mmHg) O2 Sat by Pulse 91 83 Oximetry 03/23/16 03/23/16 03/23/16 08:00 09:00 10:00 Temperature Pulse Rate 66 85 82 Respiratory 8 27 26 Rate Blood Pressure 106/55 100/48 104/39 (mmHg) O2 Sat by Pulse 91 85 87 Oximetry 03/23/16 03/23/16 03/23/16 11:00 11:40 11:58 Temperature 98.1 F Pulse Rate 79 Respiratory 24 21 Rate Blood Pressure 114/45 (mmHg) O2 Sat by Pulse 86 Oximetry 03/23/16 03/23/16 12:00 13:00 Temperature Pulse Rate 77 74 Respiratory 23 20 Rate Blood Pressure 123/50 103/40 (mmHg) O2 Sat by Pulse 89 88 Oximetry Oxygen Devices in Use Now: Nasal Cannula Appearance: Elderly woman lying in bed in NAD Eyes: No Scleral Icterus Ears/Nose/Mouth/Throat: Mucous Membranes Moist Neck: NL Appearance and Movements; NL JVP, No Thyroid Enlargement, Masses Respiratory: - - bilateral rales Abdominal: NL Sounds; No Tenderness; No Distention, No Hepatosplenomegaly Lymphatic: No Cervical Adenopathy Extremities: No Clubbing, Cyanosis Skin: No Rash or Ulcers Neurological: Alert and Oriented x 3 Result Diagrams: 03/20/16 05:00 03/20/16 05:00 Additional Lab and Data: Lab Results 03/17/16 03/17/16 03/17/16 Range/Units 09:40 09:40 09:40 WBC 11.3 H (3.5-10.8) 10^3/ul RBC 4.92 (4.0-5.4) 10^6/ul Hgb 13.9 (12.0-16.0) g/dl Hct 43 (35-47) % MCV 87 (80-97) fL MCH 28 (27-31) pg MCHC 33 (31-36) g/dl RDW 14 (10.5-15) % Plt Count 236 (150-450) 10^3/ul MPV 7 L (7.4-10.4) um3 Neut % (Auto) 86.7 H (38-83) % Lymph % (Auto) 5.1 L (25-47) % [place] % (Auto) 6.2 (1-9) % Eos % (Auto) 1.5 (0-6) % Baso % (Auto) 0.5 (0-2) % Absolute Neuts (auto) 9.7 H (1.5-7.7) 10^3/ul Absolute Lymphs (auto) 0.6 L (1.0-4.8) 10^3/ul Absolute Monos (auto) 0.7 (0-0.8) 10^3/ul Absolute Eos (auto) 0.2 (0-0.6) 10^3/ul Absolute Basos (auto) 0.1 (0-0.2) 10^3/ul Absolute Nucleated RBC 0 10^3/ul Nucleated RBC % 0 INR (Anticoag Therapy) 1.07 (0.89-1.11) APTT 27.0 (26.0-36.3) seconds Patient Temperature ABG pH (7.35-7.45) ABG pCO2 (35-45) mmHg ABG pO2 (80-100) mmHg ABG HCO3 (19-31) mmol/L ABG O2 Saturation (95-98) % ABG Base Excess (-2.0-2.0) Respiration Rate O2 Delivery Device Ventilator Type Vent Mode FiO2 Inspiratory Time PEEP Pressure Support Pressure Control EPAP IPAP BiPAP Sodium 136 (133-145) mmol/L Potassium 3.6 (3.5-5.0) mmol/L Chloride 102 (101-111) mmol/L Carbon Dioxide 26 (22-32) mmol/L Anion Gap 8 (2-11) mmol/L BUN 11 (6-24) mg/dL Creatinine 0.57 (0.51-0.95) mg/dL Est GFR ( Amer) 132.6 (>60) Est GFR (Non-Af Amer) 103.1 (>60) BUN/Creatinine Ratio 19.3 (8-20) Glucose 159 H (70-100) mg/dL Lactic Acid (0.5-2.0) mmol/L Calcium 8.9 (8.6-10.3) mg/dL Total Bilirubin 0.90 (0.2-1.0) mg/dL AST 25 (13-39) U/L ALT 12 (7-52) U/L Alkaline Phosphatase 124 H (34-104) U/L Total Creatine Kinase 73 (10-223) U/L Troponin I 1.23 H* (<0.04) ng/mL B-Natriuretic Peptide ( - 100) pg/mL Total Protein 7.1 (6.4-8.9) g/dL Albumin 3.6 (3.2-5.2) g/dL Globulin 3.5 (2-4) g/dL Albumin/Globulin Ratio 1.0 (1-3) 03/17/16 03/17/16 03/17/16 Range/Units 09:40 09:40 10:02 WBC (3.5-10.8) 10^3/ul RBC (4.0-5.4) 10^6/ul Hgb (12.0-16.0) g/dl Hct (35-47) % MCV (80-97) fL MCH (27-31) pg MCHC (31-36) g/dl RDW (10.5-15) % Plt Count (150-450) 10^3/ul MPV (7.4-10.4) um3 Neut % (Auto) (38-83) % Lymph % (Auto) (25-47) % Meade % (Auto) (1-9) % Eos % (Auto) (0-6) % Baso % (Auto) (0-2) % Absolute Neuts (auto) (1.5-7.7) 10^3/ul Absolute Lymphs (auto) (1.0-4.8) 10^3/ul Absolute Monos (auto) (0-0.8) 10^3/ul Absolute Eos (auto) (0-0.6) 10^3/ul Absolute Basos (auto) (0-0.2) 10^3/ul Absolute Nucleated RBC 10^3/ul Nucleated RBC % INR (Anticoag Therapy) (0.89-1.11) APTT (26.0-36.3) seconds Patient Temperature Not Reportable ABG pH 7.42 (7.35-7.45) ABG pCO2 45 (35-45) mmHg ABG pO2 54 L* (80-100) mmHg ABG HCO3 27.7 (19-31) mmol/L ABG O2 Saturation 89.7 L (95-98) % ABG Base Excess 4.0 H (-2.0-2.0) Respiration Rate Not Reportable O2 Delivery Device nrb Ventilator Type Not Reportable Vent Mode Not Reportable FiO2 100 Inspiratory Time Not Reportable PEEP Not Reportable Pressure Support Not Reportable Pressure Control Not Reportable EPAP Not Reportable IPAP Not Reportable BiPAP Not Reportable Sodium (133-145) mmol/L Potassium (3.5-5.0) mmol/L Chloride (101-111) mmol/L Carbon Dioxide (22-32) mmol/L Anion Gap (2-11) mmol/L BUN (6-24) mg/dL Creatinine (0.51-0.95) mg/dL Est GFR ( Amer) (>60) Est GFR (Non-Af Amer) (>60) BUN/Creatinine Ratio (8-20) Glucose (70-100) mg/dL Lactic Acid 1.2 (0.5-2.0) mmol/L Calcium (8.6-10.3) mg/dL Total Bilirubin (0.2-1.0) mg/dL AST (13-39) U/L ALT (7-52) U/L Alkaline Phosphatase (34-104) U/L Total Creatine Kinase (10-223) U/L Troponin I (<0.04) ng/mL B-Natriuretic Peptide 157 H ( - 100) pg/mL Total Protein (6.4-8.9) g/dL Albumin (3.2-5.2) g/dL Globulin (2-4) g/dL Albumin/Globulin Ratio (1-3) 03/17/ Range/Units 11:08 WBC (3.5-10.8) 10^3/ul RBC (4.0-5.4) 10^6/ul Hgb (12.0-16.0) g/dl Hct (35-47) % MCV (80-97) fL MCH (27-31) pg MCHC (31-36) g/dl RDW (10.5-15) % Plt Count (150-450) 10^3/ul MPV (7.4-10.4) um3 Neut % (Auto) (38-83) % Lymph % (Auto) (25-47) % Meade % (Auto) (1-9) % Eos % (Auto) (0-6) % Baso % (Auto) (0-2) % Absolute Neuts (auto) (1.5-7.7) 10^3/ul Absolute Lymphs (auto) (1.0-4.8) 10^3/ul Absolute Monos (auto) (0-0.8) 10^3/ul Absolute Eos (auto) (0-0.6) 10^3/ul Absolute Basos (auto) (0-0.2) 10^3/ul Absolute Nucleated RBC 10^3/ul Nucleated RBC % INR (Anticoag Therapy) (0.89-1.11) APTT (26.0-36.3) seconds Patient Temperature Not Reportable ABG pH 7.41 (7.35-7.45) ABG pCO2 40 (35-45) mmHg ABG pO2 63 L (80-100) mmHg ABG HCO3 25.3 (19-31) mmol/L ABG O2 Saturation 94.3 L (95-98) % ABG Base Excess 0.7 (-2.0-2.0) Respiration Rate 14 O2 Delivery Device Ventilator Type Not Reportable Vent Mode st FiO2 100 Inspiratory Time Not Reportable PEEP Not Reportable Pressure Support Not Reportable Pressure Control Not Reportable EPAP 5 IPAP 14 BiPAP Not Reportable Sodium (133-145) mmol/L Potassium (3.5-5.0) mmol/L Chloride (101-111) mmol/L Carbon Dioxide (22-32) mmol/L Anion Gap (2-11) mmol/L BUN (6-24) mg/dL Creatinine (0.51-0.95) mg/dL Est GFR ( Amer) (>60) Est GFR (Non-Af Amer) (>60) BUN/Creatinine Ratio (8-20) Glucose (70-100) mg/dL Lactic Acid (0.5-2.0) mmol/L Calcium (8.6-10.3) mg/dL Total Bilirubin (0.2-1.0) mg/dL AST (13-39) U/L ALT (7-52) U/L Alkaline Phosphatase (34-104) U/L Total Creatine Kinase (10-223) U/L Troponin I (<0.04) ng/mL B-Natriuretic Peptide ( - 100) pg/mL Total Protein (6.4-8.9) g/dL Albumin (3.2-5.2) g/dL Globulin (2-4) g/dL Albumin/Globulin Ratio (1-3) Microbiology and Other Data: Microbiology 03/17/16 14:00 Nasal Screen MRSA (PCR)(NIMA) - Final Nasal Mrsa Negative Assess/Plan/Problems-Billing Assessment: 75 year old woman admitted to [facility] with hypoxic respiratory respiratory failure. - Patient Problems (1) Respiratory failure Current Visit: Yes Status: Acute Code(s): J96.90 - RESPIRATORY FAILURE, UNSP , UNSP W HYPOXIA OR HYPERCAPNIA SNOMED Code(s): 318021357 Comment: Improved but still requiring vapotherm. Down to 20. (2) Metastatic lung cancer (metastasis from lung to other site) Current Visit: Yes Status: Acute Code(s): C34.90 - MALIGNANT NEOPLASM OF UNSP PART OF UNSP BRONCHUS OR LUNG SNOMED Code(s): 353031182 Comment: Will likely go to hospice on dc. (3) NSTEMI (non-ST elevated myocardial infarction) Current Visit: Yes Status: Acute Code(s): I21.4 - NON-ST ELEVATION (NSTEMI) MYOCARDIAL INFARCTION SNOMED Code(s): 75675243 Comment: Likely from demand ischemia from hypoxic respiratory failure. Not actively managing as emphasis on comfort care. (4) DVT prophylaxis Current Visit: No Status: Acute Code(s): QSA2242 - SNOMED Code(s): 457399731 Comment: Lovenox (5) DNR (do not resuscitate) Current Visit: No Status: Acute
[2016-03-23] MEDS: Enoxaparin(*) 40 MG/0.4 ML SYR SUBCUT SCH (15:22)
[2016-03-23] MEDS: Morphine INJ* 2 MG/ML 1 ML CARPUJECT IV PRN (19:51)
[2016-03-23] MEDS: Acetaminophen TAB* 325 MG PO PRN (21:35)
[2016-03-23] MEDS: diPHENhydraMINE PO* 50 MG PO PRN (21:35)
[2016-03-23] MEDS: ALPRAZolam TAB* 0.25 MG PO PRN (21:36)
[2016-03-24] MEDS: Morphine INJ* 2 MG/ML 1 ML CARPUJECT IV PRN ×4 (00:47→21:58)
[2016-03-24] MEDS: Sertraline* 100 MG TAB PO SCH (08:55)
[2016-03-24] MEDS: predniSONE TAB* 20 MG PO SCH (08:55)
[2016-03-24] MEDS: Ondansetron INJ* 2 MG/ML VIAL IV PRN (10:47)
[2016-03-24] MEDS: Acetaminophen TAB* 325 MG PO PRN (13:53)
--- NOTE | 2016-03-24 14:26 | PN ---
Subjective Date of Service: 03/24/16 Interval History: Patient feels about the same. Mostly weak. Not complaining of too much SOB or pain. Wants to get home soon and go on hospice. Objective Active Medications: Acetaminophen (Tylenol Tab*) 650 mg PO Q6H PRN PRN Reason: PAIN Last Admin: 03/24/16 13:53 Dose: 650 mg Albuterol (Ventolin 2.5 Mg/3 Ml Neb.Norma*) 2.5 mg INH Q4H PRN PRN Reason: SOB/WHEEZING Alprazolam (Xanax Tab*) 0.25 mg PO TID PRN PRN Reason: ANXIETY Last Admin: 03/23/16 21:36 Dose: 0.25 mg Diphenhydramine HCl (Benadryl Po*) 50 mg PO BEDTIME PRN PRN Reason: SLEEP Last Admin: 03/23/16 21:35 Dose: 50 mg Enoxaparin Sodium (Lovenox(*)) 40 mg SUBCUT Q24H [facility] Last Admin: 03/23/16 15:22 Dose: 40 mg Morphine Sulfate (Morphine Oral Concentrate*) 2.5 mg SL Q2H PRN PRN Reason: PAIN Last Admin: 03/23/16 17:00 Dose: 2.5 mg Morphine Sulfate (Morphine Inj (Syringe)*) 2 mg IV Q1H PRN PRN Reason: PAIN Last Admin: 03/24/16 12:41 Dose: 2 mg Ondansetron HCl (Zofran Inj*) 4 mg IV Q6H PRN PRN Reason: NAUSEA Last Admin: 03/24/16 10:47 Dose: 4 mg Prednisone (Deltasone Tab*) 40 mg PO DAILY [facility] Last Admin: 03/24/16 08:55 Dose: 40 mg Sertraline HCl (Zoloft*) 100 mg PO DAILY [facility] Last Admin: 03/24/16 08:55 Dose: 100 mg Trazodone HCl (Desyrel Tab*) 50 mg PO BEDTIME PRN PRN Reason: insomnia Last Admin: 03/22/16 22:33 Dose: 50 mg Vital Signs 03/23/16 03/23/16 03/23/16 15:00 15:20 15:25 Temperature 97.8 F Pulse Rate 76 Respiratory 27 Rate Blood Pressure 109/50 (mmHg) O2 Sat by Pulse 87 89 Oximetry 03/23/16 03/23/16 03/23/16 16:00 17:00 18:00 Temperature Pulse Rate 82 77 80 Respiratory 22 23 21 Rate Blood Pressure 113/47 115/44 120/48 (mmHg) O2 Sat by Pulse 88 90 85 Oximetry 03/23/16 03/23/16 03/23/16 18:02 19:00 19:03 Temperature Pulse Rate Respiratory 27 24 Rate Blood Pressure 64/49 108/42 (mmHg) O2 Sat by Pulse 89 83 86 Oximetry 03/23/16 03/23/16 03/23/16 19:47 19:51 20:00 Temperature 97.8 F Pulse Rate Respiratory 28 26 Rate Blood Pressure 111/39 (mmHg) O2 Sat by Pulse 87 Oximetry 03/23/16 03/23/16 03/23/16 20:55 21:00 21:36 Temperature Pulse Rate 79 Respiratory 18 23 20 Rate Blood Pressure 136/51 (mmHg) O2 Sat by Pulse 87 88 Oximetry 03/23/16 03/23/16 03/23/16 22:00 22:07 23:00 Temperature Pulse Rate Respiratory 21 22 20 Rate Blood Pressure 119/52 127/45 (mmHg) O2 Sat by Pulse 87 87 Oximetry 03/23/16 03/24/16 03/24/16 23:15 00:00 00:01 Temperature Pulse Rate Respiratory 18 20 18 Rate Blood Pressure 108/43 (mmHg) O2 Sat by Pulse 88 91 90 Oximetry 03/24/16 03/24/16 03/24/16 00:47 00:52 01:00 Temperature Pulse Rate Respiratory 20 20 24 Rate Blood Pressure 124/49 (mmHg) O2 Sat by Pulse 85 Oximetry 03/24/16 03/24/16 03/24/16 02:00 02:30 03:00 Temperature 98.2 F Pulse Rate 57 Respiratory 22 19 Rate Blood Pressure 117/51 118/46 (mmHg) O2 Sat by Pulse 87 Oximetry 03/24/16 03/24/16 03/24/16 04:00 04:24 05:00 Temperature Pulse Rate 69 Respiratory 19 17 21 Rate Blood Pressure 125/46 107/40 (mmHg) O2 Sat by Pulse 86 85 Oximetry 03/24/16 03/24/16 03/24/16 06:00 07:00 07:47 Temperature 97.5 F Pulse Rate 62 Respiratory 21 17 Rate Blood Pressure 135/55 136/54 (mmHg) O2 Sat by Pulse 87 86 Oximetry 03/24/16 03/24/16 03/24/16 08:00 08:38 08:41 Temperature Pulse Rate 66 65 Respiratory 16 21 Rate Blood Pressure 128/55 (mmHg) O2 Sat by Pulse 88 87 87 Oximetry 03/24/16 03/24/16 03/24/16 09:00 09:59 10:00 Temperature Pulse Rate 89 86 Respiratory 17 25 29 Rate Blood Pressure 105/44 (mmHg) O2 Sat by Pulse 77 82 Oximetry 03/24/16 03/24/16 03/24/16 11:00 11:12 12:00 Temperature 97.5 F Pulse Rate 79 86 Respiratory 24 22 Rate Blood Pressure 124/47 118/37 (mmHg) O2 Sat by Pulse 82 70 Oximetry 03/24/16 12:41 Temperature Pulse Rate Respiratory 26 Rate Blood Pressure (mmHg) O2 Sat by Pulse Oximetry Oxygen Devices in Use Now: Nasal Cannula - Vapotherm Eyes: No Scleral Icterus Ears/Nose/Mouth/Throat: Clear Oropharnyx Neck: No Thyroid Enlargement, Masses Respiratory: - - Bibasilar rales Cardiovascular: - - S1S2 Abdominal: NL Sounds; No Tenderness; No Distention, No Hepatosplenomegaly Lymphatic: No Cervical Adenopathy Extremities: No Clubbing, Cyanosis Skin: No Rash or Ulcers Neurological: Alert and Oriented x 3 Result Diagrams: 03/20/16 05:00 03/20/16 05:00 Additional Lab and Data: Lab Results 03/17/16 03/17/16 03/17/16 Range/Units 09:40 09:40 09:40 WBC 11.3 H (3.5-10.8) 10^3/ul RBC 4.92 (4.0-5.4) 10^6/ul Hgb 13.9 (12.0-16.0) g/dl Hct 43 (35-47) % MCV 87 (80-97) fL MCH 28 (27-31) pg MCHC 33 (31-36) g/dl RDW 14 (10.5-15) % Plt Count 236 (150-450) 10^3/ul MPV 7 L (7.4-10.4) um3 Neut % (Auto) 86.7 H (38-83) % Lymph % (Auto) 5.1 L (25-47) % [place] % (Auto) 6.2 (1-9) % Eos % (Auto) 1.5 (0-6) % Baso % (Auto) 0.5 (0-2) % Absolute Neuts (auto) 9.7 H (1.5-7.7) 10^3/ul Absolute Lymphs (auto) 0.6 L (1.0-4.8) 10^3/ul Absolute Monos (auto) 0.7 (0-0.8) 10^3/ul Absolute Eos (auto) 0.2 (0-0.6) 10^3/ul Absolute Basos (auto) 0.1 (0-0.2) 10^3/ul Absolute Nucleated RBC 0 10^3/ul Nucleated RBC % 0 INR (Anticoag Therapy) 1.07 (0.89-1.11) APTT 27.0 (26.0-36.3) seconds Patient Temperature ABG pH (7.35-7.45) ABG pCO2 (35-45) mmHg ABG pO2 (80-100) mmHg ABG HCO3 (19-31) mmol/L ABG O2 Saturation (95-98) % ABG Base Excess (-2.0-2.0) Respiration Rate O2 Delivery Device Ventilator Type Vent Mode FiO2 Inspiratory Time PEEP Pressure Support Pressure Control EPAP IPAP BiPAP Sodium 136 (133-145) mmol/L Potassium 3.6 (3.5-5.0) mmol/L Chloride 102 (101-111) mmol/L Carbon Dioxide 26 (22-32) mmol/L Anion Gap 8 (2-11) mmol/L BUN 11 (6-24) mg/dL Creatinine 0.57 (0.51-0.95) mg/dL Est GFR ( Amer) 132.6 (>60) Est GFR (Non-Af Amer) 103.1 (>60) BUN/Creatinine Ratio 19.3 (8-20) Glucose 159 H (70-100) mg/dL Lactic Acid (0.5-2.0) mmol/L Calcium 8.9 (8.6-10.3) mg/dL Total Bilirubin 0.90 (0.2-1.0) mg/dL AST 25 (13-39) U/L ALT 12 (7-52) U/L Alkaline Phosphatase 124 H (34-104) U/L Total Creatine Kinase 73 (10-223) U/L Troponin I 1.23 H* (<0.04) ng/mL B-Natriuretic Peptide ( - 100) pg/mL Total Protein 7.1 (6.4-8.9) g/dL Albumin 3.6 (3.2-5.2) g/dL Globulin 3.5 (2-4) g/dL Albumin/Globulin Ratio 1.0 (1-3) 03/17/16 03/17/16 03/17/16 Range/Units 09:40 09:40 10:02 WBC (3.5-10.8) 10^3/ul RBC (4.0-5.4) 10^6/ul Hgb (12.0-16.0) g/dl Hct (35-47) % MCV (80-97) fL MCH (27-31) pg MCHC (31-36) g/dl RDW (10.5-15) % Plt Count (150-450) 10^3/ul MPV (7.4-10.4) um3 Neut % (Auto) (38-83) % Lymph % (Auto) (25-47) % [place] % (Auto) (1-9) % Eos % (Auto) (0-6) % Baso % (Auto) (0-2) % Absolute Neuts (auto) (1.5-7.7) 10^3/ul Absolute Lymphs (auto) (1.0-4.8) 10^3/ul Absolute Monos (auto) (0-0.8) 10^3/ul Absolute Eos (auto) (0-0.6) 10^3/ul Absolute Basos (auto) (0-0.2) 10^3/ul Absolute Nucleated RBC 10^3/ul Nucleated RBC % INR (Anticoag Therapy) (0.89-1.11) APTT (26.0-36.3) seconds Patient Temperature Not Reportable ABG pH 7.42 (7.35-7.45) ABG pCO2 45 (35-45) mmHg ABG pO2 54 L* (80-100) mmHg ABG HCO3 27.7 (19-31) mmol/L ABG O2 Saturation 89.7 L (95-98) % ABG Base Excess 4.0 H (-2.0-2.0) Respiration Rate Not Reportable O2 Delivery Device nrb Ventilator Type Not Reportable Vent Mode Not Reportable FiO2 100 Inspiratory Time Not Reportable PEEP Not Reportable Pressure Support Not Reportable Pressure Control Not Reportable EPAP Not Reportable IPAP Not Reportable BiPAP Not Reportable Sodium (133-145) mmol/L Potassium (3.5-5.0) mmol/L Chloride (101-111) mmol/L Carbon Dioxide (22-32) mmol/L Anion Gap (2-11) mmol/L BUN (6-24) mg/dL Creatinine (0.51-0.95) mg/dL Est GFR ( Amer) (>60) Est GFR (Non-Af Amer) (>60) BUN/Creatinine Ratio (8-20) Glucose (70-100) mg/dL Lactic Acid 1.2 (0.5-2.0) mmol/L Calcium (8.6-10.3) mg/dL Total Bilirubin (0.2-1.0) mg/dL AST (13-39) U/L ALT (7-52) U/L Alkaline Phosphatase (34-104) U/L Total Creatine Kinase (10-223) U/L Troponin I (<0.04) ng/mL B-Natriuretic Peptide 157 H ( - 100) pg/mL Total Protein (6.4-8.9) g/dL Albumin (3.2-5.2) g/dL Globulin (2-4) g/dL Albumin/Globulin Ratio (1-3) 03/17/16 Range/Units 11:08 WBC (3.5-10.8) 10^3/ul RBC (4.0-5.4) 10^6/ul Hgb (12.0-16.0) g/dl Hct (35-47) % MCV (80-97) fL MCH (27-31) pg MCHC (31-36) g/dl RDW (10.5-15) % Plt Count (150-450) 10^3/ul MPV (7.4-10.4) um3 Neut % (Auto) (38-83) % Lymph % (Auto) (25-47) % [place] % (Auto) (1-9) % Eos % (Auto) (0-6) % Baso % (Auto) (0-2) % Absolute Neuts (auto) (1.5-7.7) 10^3/ul Absolute Lymphs (auto) (1.0-4.8) 10^3/ul Absolute Monos (auto) (0-0.8) 10^3/ul Absolute Eos (auto) (0-0.6) 10^3/ul Absolute Basos (auto) (0-0.2) 10^3/ul Absolute Nucleated RBC 10^3/ul Nucleated RBC % INR (Anticoag Therapy) (0.89-1.11) APTT (26.0-36.3) seconds Patient Temperature Not Reportable ABG pH 7.41 (7.35-7.45) ABG pCO2 40 (35-45) mmHg ABG pO2 63 L (80-100) mmHg ABG HCO3 25.3 (19-31) mmol/L ABG O2 Saturation 94.3 L (95-98) % ABG Base Excess 0.7 (-2.0-2.0) Respiration Rate 14 O2 Delivery Device Ventilator Type Not Reportable Vent Mode st FiO2 100 Inspiratory Time Not Reportable PEEP Not Reportable Pressure Support Not Reportable Pressure Control Not Reportable EPAP 5 IPAP 14 BiPAP Not Reportable Sodium (133-145) mmol/L Potassium (3.5-5.0) mmol/L Chloride (101-111) mmol/L Carbon Dioxide (22-32) mmol/L Anion Gap (2-11) mmol/L BUN (6-24) mg/dL Creatinine (0.51-0.95) mg/dL Est GFR ( Amer) (>60) Est GFR (Non-Af Amer) (>60) BUN/Creatinine Ratio (8-20) Glucose (70-100) mg/dL Lactic Acid (0.5-2.0) mmol/L Calcium (8.6-10.3) mg/dL Total Bilirubin (0.2-1.0) mg/dL AST (13-39) U/L ALT (7-52) U/L Alkaline Phosphatase (34-104) U/L Total Creatine Kinase (10-223) U/L Troponin I (<0.04) ng/mL B-Natriuretic Peptide ( - 100) pg/mL Total Protein (6.4-8.9) g/dL Albumin (3.2-5.2) g/dL Globulin (2-4) g/dL Albumin/Globulin Ratio (1-3) Microbiology and Other Data: Microbiology 03/17/16 14:00 Nasal Screen MRSA (PCR)([facility]) - Final Nasal Mrsa Negative Assess/Plan/Problems-Billing Assessment: 75 year [place] [facility] [place] respiratory failure. - Patient Problems (1) Respiratory failure Current Visit: Yes Status: Acute Code(s): J96.90 - RESPIRATORY FAILURE, UNSP , UNSP W HYPOXIA OR HYPERCAPNIA SNOMED Code(s): 742477187 Comment: Improved but still requiring vapotherm. Still at 20. Spoke with Respiratory and the patient. Patient does become hypoxic whenever we try to dial it down. At this rate we will never get her home to hospice which is the goal. Stop measuring Oxygen sat and monitor her clinically. Hopefully can get her off vapotherm to floor then home. (2) Metastatic lung cancer (metastasis from lung to other site) Current Visit: Yes Status: Acute Code(s): C34.90 - MALIGNANT NEOPLASM OF UNSP PART OF UNSP BRONCHUS OR LUNG SNOMED Code(s): 833403034 Comment: See above the goal is to home on hospice. (3) NSTEMI (non-ST elevated myocardial infarction) Current Visit: Yes Status: Acute Code(s): I21.4 - NON-ST ELEVATION (NSTEMI) MYOCARDIAL INFARCTION SNOMED Code(s): 76830299 Comment: Likely from demand ischemia from hypoxic respiratory failure. Not actively managing as emphasis on comfort care. (4) DVT prophylaxis Current Visit: No Status: Acute Code(s): NSR2782 - SNOMED Code(s): 281930563 Comment: Lovenox (5) DNR (do not resuscitate) Current Visit: No Status: Acute
[2016-03-24] MEDS: Enoxaparin(*) 40 MG/0.4 ML SYR SUBCUT SCH (15:15)
[2016-03-24] MEDS: traZODone TAB* 50 MG TAB PO PRN (21:54)
[2016-03-25] MEDS: Morphine INJ* 2 MG/ML 1 ML CARPUJECT IV PRN ×4 (01:36→21:28)
[2016-03-25] MEDS: diPHENhydraMINE PO* 50 MG PO PRN ×2 (01:36→21:27)
[2016-03-25] MEDS: predniSONE TAB* 20 MG PO SCH (09:56)
[2016-03-25] MEDS: Sertraline* 100 MG TAB PO SCH (09:56)
[2016-03-25] MEDS: Morphine ORAL CONCENTRATE* 5 MG/0.25 ML ORAL.SYRIN SL PRN ×2 (13:44→18:20)
--- NOTE | 2016-03-25 14:48 | PN ---
Subjective Date of Service: 03/25/16 Interval History: Patient without new complaints. Objective Active Medications: Acetaminophen (Tylenol Tab*) 650 mg PO Q6H PRN PRN Reason: PAIN Last Admin: 03/24/16 13:53 Dose: 650 mg Albuterol (Ventolin 2.5 Mg/3 Ml Neb.Norma*) 2.5 mg INH Q4H PRN PRN Reason: SOB/WHEEZING Diphenhydramine HCl (Benadryl Po*) 50 mg PO BEDTIME PRN PRN Reason: SLEEP Last Admin: 03/25/16 01:36 Dose: 50 mg Enoxaparin Sodium (Lovenox(*)) 40 mg SUBCUT Q24H MARICARMEN Last Admin: 03/24/16 15:15 Dose: 40 mg Morphine Sulfate (Morphine Oral Concentrate*) 2.5 mg SL Q2H PRN PRN Reason: PAIN Last Admin: 03/25/16 13:44 Dose: 2.5 mg Morphine Sulfate (Morphine Inj (Syringe)*) 2 mg IV Q1H PRN PRN Reason: PAIN Last Admin: 03/25/16 09:56 Dose: 2 mg Ondansetron HCl (Zofran Inj*) 4 mg IV Q6H PRN PRN Reason: NAUSEA Last Admin: 03/24/16 10:47 Dose: 4 mg Prednisone (Deltasone Tab*) 40 mg PO DAILY [facility] Last Admin: 03/25/16 09:56 Dose: 40 mg Sertraline HCl (Zoloft*) 100 mg PO DAILY [facility] Last Admin: 03/25/16 09:56 Dose: 100 mg Trazodone HCl (Desyrel Tab*) 50 mg PO BEDTIME PRN PRN Reason: insomnia Last Admin: 03/24/16 21:54 Dose: 50 mg Vital Signs 03/24/16 03/24/16 03/24/16 15:00 15:29 16:00 Temperature 97.4 F Pulse Rate 67 69 Respiratory 20 22 Rate Blood Pressure 130/53 123/61 (mmHg) O2 Sat by Pulse 85 81 Oximetry 03/24/16 03/24/16 03/24/16 17:00 18:00 19:00 Temperature Pulse Rate 67 81 Respiratory 22 21 24 Rate Blood Pressure 129/53 131/51 118/47 (mmHg) O2 Sat by Pulse 85 81 Oximetry 03/24/16 03/24/1616 19:33 20:00 20:47 Temperature 97.8 F Pulse Rate Respiratory 23 25 Rate Blood Pressure 125/46 (mmHg) O2 Sat by Pulse Oximetry 03/24/16 03/24/16 03/24/16 21:00 21:58 22:00 Temperature Pulse Rate Respiratory 24 18 19 Rate Blood Pressure 126/50 100/42 (mmHg) O2 Sat by Pulse Oximetry 03/24/16 03/25/16 03/25/16 23:00 00:00 00:01 Temperature Pulse Rate Respiratory 16 19 20 Rate Blood Pressure 119/47 142/61 (mmHg) O2 Sat by Pulse Oximetry 03/25/16 03/25/16 03/25/16 00:05 01:00 01:36 Temperature Pulse Rate Respiratory 22 26 Rate Blood Pressure 101/61 (mmHg) O2 Sat by Pulse 90 Oximetry 03/25/16 03/25/16 03/25/16 02:00 03:00 04:00 Temperature 97.8 F Pulse Rate Respiratory 24 23 18 Rate Blood Pressure 133/59 121/53 110/47 (mmHg) O2 Sat by Pulse Oximetry 03/25/16 03/25/16 03/25/16 05:00 05:19 06:00 Temperature Pulse Rate Respiratory 20 16 22 Rate Blood Pressure 134/54 111/37 (mmHg) O2 Sat by Pulse Oximetry 03/25/16 03/25/16 03/25/16 07:00 07:39 08:00 Temperature 96.9 F Pulse Rate Respiratory 18 15 Rate Blood Pressure 84/45 92/40 (mmHg) O2 Sat by Pulse Oximetry 03/25/16 03/25/16 03/25/16 08:31 08:39 09:00 Temperature Pulse Rate 64 Respiratory 16 15 17 Rate Blood Pressure 122/46 109/44 (mmHg) O2 Sat by Pulse Oximetry 03/25/16 03/25/16 03/25/16 09:56 10:00 11:00 Temperature Pulse Rate Respiratory 18 22 21 Rate Blood Pressure 103/31 111/34 (mmHg) O2 Sat by Pulse Oximetry 03/25/16 03/25/16 03/25/16 11:48 12:00 13:00 Temperature 97.7 F Pulse Rate Respiratory 19 23 Rate Blood Pressure 127/45 139/60 (mmHg) O2 Sat by Pulse Oximetry Oxygen Devices in Use Now: Nasal Cannula - Salter at 15 Appearance: Elderly woman sitting up in her chair in NAD Eyes: No Scleral Icterus Ears/Nose/Mouth/Throat: Clear Oropharnyx Neck: NL Appearance and Movements; NL JVP, No Thyroid Enlargement, Masses Respiratory: - - Bilateral rales 2/[address] Abdominal: NL Sounds; No Tenderness; No Distention, No Hepatosplenomegaly Lymphatic: No Cervical Adenopathy Extremities: No Clubbing, Cyanosis Skin: No Rash or Ulcers Neurological: Alert and Oriented x 3 Result Diagrams: 03/20/16 05:00 03/20/16 05:00 Additional Lab and Data: Lab Results 03/17/16 03/17/16 03/17/16 Range/Units 09:40 09:40 09:40 WBC 11.3 H (3.5-10.8) 10^3/ul RBC 4.92 (4.0-5.4) 10^6/ul Hgb 13.9 (12.0-16.0) g/dl Hct 43 (35-47) % MCV 87 (80-97) fL MCH 28 (27-31) pg MCHC 33 (31-36) g/dl RDW 14 (10.5-15) % Plt Count 236 (150-450) 10^3/ul MPV 7 L (7.4-10.4) um3 Neut % (Auto) 86.7 H (38-83) % Lymph % (Auto) 5.1 L (25-47) % [place] % (Auto) 6.2 (1-9) % Eos % (Auto) 1.5 (0-6) % Baso % (Auto) 0.5 (0-2) % Absolute Neuts (auto) 9.7 H (1.5-7.7) 10^3/ul Absolute Lymphs (auto) 0.6 L (1.0-4.8) 10^3/ul Absolute Monos (auto) 0.7 (0-0.8) 10^3/ul Absolute Eos (auto) 0.2 (0-0.6) 10^3/ul Absolute Basos (auto) 0.1 (0-0.2) 10^3/ul Absolute Nucleated RBC 0 10^3/ul Nucleated RBC % 0 INR (Anticoag Therapy) 1.07 (0.89-1.11) APTT 27.0 (26.0-36.3) seconds Patient Temperature ABG pH (7.35-7.45) ABG pCO2 (35-45) mmHg ABG pO2 (80-100) mmHg ABG HCO3 (19-31) mmol/L ABG O2 Saturation (95-98) % ABG Base Excess (-2.0-2.0) Respiration Rate O2 Delivery Device Ventilator Type Vent Mode FiO2 Inspiratory Time PEEP Pressure Support Pressure Control EPAP IPAP BiPAP Sodium 136 (133-145) mmol/L Potassium 3.6 (3.5-5.0) mmol/L Chloride 102 (101-111) mmol/L Carbon Dioxide 26 (22-32) mmol/L Anion Gap 8 (2-11) mmol/L BUN 11 (6-24) mg/dL Creatinine 0.57 (0.51-0.95) mg/dL Est GFR ( Amer) 132.6 (>60) Est GFR (Non-Af Amer) 103.1 (>60) BUN/Creatinine Ratio 19.3 (8-20) Glucose 159 H (70-100) mg/dL Lactic Acid (0.5-2.0) mmol/L Calcium 8.9 (8.6-10.3) mg/dL Total Bilirubin 0.90 (0.2-1.0) mg/dL AST 25 (13-39) U/L ALT 12 (7-52) U/L Alkaline Phosphatase 124 H (34-104) U/L Total Creatine Kinase 73 (10-223) U/L Troponin I 1.23 H* (<0.04) ng/mL B-Natriuretic Peptide ( - 100) pg/mL Total Protein 7.1 (6.4-8.9) g/dL Albumin 3.6 (3.2-5.2) g/dL Globulin 3.5 (2-4) g/dL Albumin/Globulin Ratio 1.0 (1-3) 03/17/16 03/17/16 03/17/16 Range/Units 09:40 09:40 10:02 WBC (3.5-10.8) 10^3/ul RBC (4.0-5.4) 10^6/ul Hgb (12.0-16.0) g/dl Hct (35-47) % MCV (80-97) fL MCH (27-31) pg MCHC (31-36) g/dl RDW (10.5-15) % Plt Count (150-450) 10^3/ul MPV (7.4-10.4) um3 Neut % (Auto) (38-83) % Lymph % (Auto) (25-47) % [place] % (Auto) (1-9) % Eos % (Auto) (0-6) % Baso % (Auto) (0-2) % Absolute Neuts (auto) (1.5-7.7) 10^3/ul Absolute Lymphs (auto) (1.0-4.8) 10^3/ul Absolute Monos (auto) (0-0.8) 10^3/ul Absolute Eos (auto) (0-0.6) 10^3/ul Absolute Basos (auto) (0-0.2) 10^3/ul Absolute Nucleated RBC 10^3/ul Nucleated RBC % INR (Anticoag Therapy) (0.89-1.11) APTT (26.0-36.3) seconds Patient Temperature Not Reportable ABG pH 7.42 (7.35-7.45) ABG pCO2 45 (35-45) mmHg ABG pO2 54 L* (80-100) mmHg ABG HCO3 27.7 (19-31) mmol/L ABG O2 Saturation 89.7 L (95-98) % ABG Base Excess 4.0 H (-2.0-2.0) Respiration Rate Not Reportable O2 Delivery Device nrb Ventilator Type Not Reportable Vent Mode Not Reportable FiO2 100 Inspiratory Time Not Reportable PEEP Not Reportable Pressure Support Not Reportable Pressure Control Not Reportable EPAP Not Reportable IPAP Not Reportable BiPAP Not Reportable Sodium (133-145) mmol/L Potassium (3.5-5.0) mmol/L Chloride (101-111) mmol/L Carbon Dioxide (22-32) mmol/L Anion Gap (2-11) mmol/L BUN (6-24) mg/dL Creatinine (0.51-0.95) mg/dL Est GFR ( Amer) (>60) Est GFR (Non-Af Amer) (>60) BUN/Creatinine Ratio (8-20) Glucose (70-100) mg/dL Lactic Acid 1.2 (0.5-2.0) mmol/L Calcium (8.6-10.3) mg/dL Total Bilirubin (0.2-1.0) mg/dL AST (13-39) U/L ALT (7-52) U/L Alkaline Phosphatase (34-104) U/L Total Creatine Kinase (10-223) U/L Troponin I (<0.04) ng/mL B-Natriuretic Peptide 157 H ( - 100) pg/mL Total Protein (6.4-8.9) g/dL Albumin (3.2-5.2) g/dL Globulin (2-4) g/dL Albumin/Globulin Ratio (1-3) 12//16 Range/Units 11:08 WBC (3.5-10.8) 10^3/ul RBC (4.0-5.4) 10^6/ul Hgb (12.0-16.0) g/dl Hct (35-47) % MCV (80-97) fL MCH (27-31) pg MCHC (31-36) g/dl RDW (10.5-15) % Plt Count (150-450) 10^3/ul MPV (7.4-10.4) um3 Neut % (Auto) (38-83) % Lymph % (Auto) (25-47) % [place] % (Auto) (1-9) % Eos % (Auto) (0-6) % Baso % (Auto) (0-2) % Absolute Neuts (auto) (1.5-7.7) 10^3/ul Absolute Lymphs (auto) (1.0-4.8) 10^3/ul Absolute Monos (auto) (0-0.8) 10^3/ul Absolute Eos (auto) (0-0.6) 10^3/ul Absolute Basos (auto) (0-0.2) 10^3/ul Absolute Nucleated RBC 10^3/ul Nucleated RBC % INR (Anticoag Therapy) (0.89-1.11) APTT (26.0-36.3) seconds Patient Temperature Not Reportable ABG pH 7.41 (7.35-7.45) ABG pCO2 40 (35-45) mmHg ABG pO2 63 L (80-100) mmHg ABG HCO3 25.3 (19-31) mmol/L ABG O2 Saturation 94.3 L (95-98) % ABG Base Excess 0.7 (-2.0-2.0) Respiration Rate 14 O2 Delivery Device Ventilator Type Not Reportable Vent Mode st FiO2 100 Inspiratory Time Not Reportable PEEP Not Reportable Pressure Support Not Reportable Pressure Control Not Reportable EPAP 5 IPAP 14 BiPAP Not Reportable Sodium (133-145) mmol/L Potassium (3.5-5.0) mmol/L Chloride (101-111) mmol/L Carbon Dioxide (22-32) mmol/L Anion Gap (2-11) mmol/L BUN (6-24) mg/dL Creatinine (0.51-0.95) mg/dL Est GFR ( Amer) (>60) Est GFR (Non-Af Amer) (>60) BUN/Creatinine Ratio (8-20) Glucose (70-100) mg/dL Lactic Acid (0.5-2.0) mmol/L Calcium (8.6-10.3) mg/dL Total Bilirubin (0.2-1.0) mg/dL AST (13-39) U/L ALT (7-52) U/L Alkaline Phosphatase (34-104) U/L Total Creatine Kinase (10-223) U/L Troponin I (<0.04) ng/mL B-Natriuretic Peptide ( - 100) pg/mL Total Protein (6.4-8.9) g/dL Albumin (3.2-5.2) g/dL Globulin (2-4) g/dL Albumin/Globulin Ratio (1-3) Microbiology and Other Data: Microbiology 03/17/16 14:00 Nasal Screen MRSA (PCR)(NIMA) - Final Nasal Mrsa Negative Assess/Plan/Problems-Billing Assessment: 75 year old woman admitted to [facility] with hypoxic respiratory respiratory failure. - Patient Problems (1) Respiratory failure Current Visit: Yes Status: Acute Code(s): J96.90 - RESPIRATORY FAILURE, UNSP , UNSP W HYPOXIA OR HYPERCAPNIA SNOMED Code(s): 395517728 Comment: Improved and off vapotherm. Hospice saw today and will try to arrange at home hospice. Patient stable to be moved to floor if appropriate room available. (2) Metastatic lung cancer (metastasis from lung to other site) Current Visit: Yes Status: Acute Code(s): C34.90 - MALIGNANT NEOPLASM OF UNSP PART OF UNSP BRONCHUS OR LUNG SNOMED Code(s): 630147485 Comment: See above . (3) NSTEMI (non-ST elevated myocardial infarction) Current Visit: Yes Status: Acute Code(s): I21.4 - NON-ST ELEVATION (NSTEMI) MYOCARDIAL INFARCTION SNOMED Code(s): 18467058 Comment: Likely from demand ischemia from hypoxic respiratory failure. Not actively managing as emphasis on comfort care. (4) DVT prophylaxis Current Visit: No Status: Acute Code(s): PKE9514 - SNOMED Code(s): 308292636 Comment: Dequan (5) DNR (do not resuscitate) Current Visit: No Status: Acute
[2016-03-25] MEDS: Enoxaparin(*) 40 MG/0.4 ML SYR SUBCUT SCH (15:01)
[2016-03-25] MEDS: traZODone TAB* 50 MG TAB PO PRN (21:28)
[2016-03-26] MEDS: Ondansetron INJ* 2 MG/ML VIAL IV PRN ×2 (01:54→18:20)
[2016-03-26] MEDS: Morphine INJ* 2 MG/ML 1 ML CARPUJECT IV PRN ×2 (01:55→21:38)
[2016-03-26] MEDS: Sertraline* 100 MG TAB PO SCH (08:48)
[2016-03-26] MEDS: predniSONE TAB* 20 MG PO SCH (08:48)
[2016-03-26] MEDS ORDERED: Morphine ORAL CONCENTRATE* 5 MG/0.25 ML ORAL.SYRIN PO PRN (15:19)
--- NOTE | 2016-03-26 15:19 | PN ---
Subjective Date of Service: 03/26/16 Interval History: Patient feels better and stable. Objective Active Medications: Acetaminophen (Tylenol Tab*) 650 mg PO Q6H PRN PRN Reason: PAIN Last Admin: 03/24/16 13:53 Dose: 650 mg Albuterol (Ventolin 2.5 Mg/3 Ml Neb.Norma*) 2.5 mg INH Q4H PRN PRN Reason: SOB/WHEEZING Diphenhydramine HCl (Benadryl Po*) 50 mg PO BEDTIME PRN PRN Reason: SLEEP Last Admin: 03/25/16 21:27 Dose: 50 mg Enoxaparin Sodium (Lovenox(*)) 40 mg SUBCUT Q24H MARICARMEN Last Admin: 03/25/16 15:01 Dose: 40 mg Morphine Sulfate (Morphine Oral Concentrate*) 2.5 mg SL Q2H PRN PRN Reason: PAIN Last Admin: 03/25/16 18:20 Dose: 2.5 mg Morphine Sulfate (Morphine Inj (Syringe)*) 2 mg IV Q1H PRN PRN Reason: PAIN Last Admin: 03/26/16 01:55 Dose: 2 mg Ondansetron HCl (Zofran Inj*) 4 mg IV Q6H PRN PRN Reason: NAUSEA Last Admin: 03/26/16 01:54 Dose: 4 mg Prednisone (Deltasone Tab*) 40 mg PO DAILY [facility] Last Admin: 03/26/16 08:48 Dose: 40 mg Sertraline HCl (Zoloft*) 100 mg PO DAILY [facility] Last Admin: 03/26/16 08:48 Dose: 100 mg Trazodone HCl (Desyrel Tab*) 50 mg PO BEDTIME PRN PRN Reason: insomnia Last Admin: 03/25/16 21:28 Dose: 50 mg Vital Signs 03/25/16 03/25/16 03/25/16 15:56 16:00 16:22 Temperature 97.9 F 98.0 F Pulse Rate 81 Respiratory 22 20 Rate Blood Pressure 125/53 131/50 (mmHg) O2 Sat by Pulse 82 Oximetry 03/25/16 03/25/16 03/25/16 16:50 17:03 18:20 Temperature 98.0 F 98.2 F Pulse Rate 81 75 Respiratory 20 17 18 Rate Blood Pressure 131/50 131/50 (mmHg) O2 Sat by Pulse 82 81 Oximetry 03/25/16 03/25/16 03/25/16 20:00 20:20 21:27 Temperature Pulse Rate 72 Respiratory 14 20 16 Rate Blood Pressure (mmHg) O2 Sat by Pulse Oximetry 03/25/16 03/25/16 03/25/16 21:28 21:38 21:40 Temperature 98.2 F Pulse Rate 77 77 Respiratory 20 16 Rate Blood Pressure 92/30 95/34 (mmHg) O2 Sat by Pulse 76 76 Oximetry 03/25/16 03/25/16 03/26/16 22:28 23:27 01:41 Temperature Pulse Rate 99 Respiratory 20 20 Rate Blood Pressure 132/56 (mmHg) O2 Sat by Pulse 71 Oximetry 03/26/16 03/26/16 03/26/16 01:55 02:55 07:29 Temperature 97.9 F Pulse Rate 67 Respiratory 22 20 16 Rate Blood Pressure 129/43 (mmHg) O2 Sat by Pulse 73 Oximetry Oxygen Devices in Use Now: Nasal Cannula - Salter at 15 Appearance: Elderly woman sitting up in her chair in NAD Eyes: No Scleral Icterus Ears/Nose/Mouth/Throat: Clear Oropharnyx Neck: No Thyroid Enlargement, Masses Respiratory: - - Bilater rales 2/[address] Cardiovascular: - - S1S2 [place] Abdominal: NL Sounds; No Tenderness; No Distention, No Hepatosplenomegaly Lymphatic: No Cervical Adenopathy Extremities: No Clubbing, Cyanosis Skin: No Rash or Ulcers Neurological: Alert and Oriented x 3 Result Diagrams: 03/20/16 05:00 03/20/16 05:00 Additional Lab and Data: Lab Results 03/17/16 03/17/16 03/17/16 Range/Units 09:40 09:40 09:40 WBC 11.3 H (3.5-10.8) 10^3/ul RBC 4.92 (4.0-5.4) 10^6/ul Hgb 13.9 (12.0-16.0) g/dl Hct 43 (35-47) % MCV 87 (80-97) fL MCH 28 (27-31) pg MCHC 33 (31-36) g/dl RDW 14 (10.5-15) % Plt Count 236 (150-450) 10^3/ul MPV 7 L (7.4-10.4) um3 Neut % (Auto) 86.7 H (38-83) % Lymph % (Auto) 5.1 L (25-47) % Caroline % (Auto) 6.2 (1-9) % Eos % (Auto) 1.5 (0-6) % Baso % (Auto) 0.5 (0-2) % Absolute Neuts (auto) 9.7 H (1.5-7.7) 10^3/ul Absolute Lymphs (auto) 0.6 L (1.0-4.8) 10^3/ul Absolute Monos (auto) 0.7 (0-0.8) 10^3/ul Absolute Eos (auto) 0.2 (0-0.6) 10^3/ul Absolute Basos (auto) 0.1 (0-0.2) 10^3/ul Absolute Nucleated RBC 0 10^3/ul Nucleated RBC % 0 INR (Anticoag Therapy) 1.07 (0.89-1.11) APTT 27.0 (26.0-36.3) seconds Patient Temperature ABG pH (7.35-7.45) ABG pCO2 (35-45) mmHg ABG pO2 (80-100) mmHg ABG HCO3 (19-31) mmol/L ABG O2 Saturation (95-98) % ABG Base Excess (-2.0-2.0) Respiration Rate O2 Delivery Device Ventilator Type Vent Mode FiO2 Inspiratory Time PEEP Pressure Support Pressure Control EPAP IPAP BiPAP Sodium 136 (133-145) mmol/L Potassium 3.6 (3.5-5.0) mmol/L Chloride 102 (101-111) mmol/L Carbon Dioxide 26 (22-32) mmol/L Anion Gap 8 (2-11) mmol/L BUN 11 (6-24) mg/dL Creatinine 0.57 (0.51-0.95) mg/dL Est GFR ( Amer) 132.6 (>60) Est GFR (Non-Af Amer) 103.1 (>60) BUN/Creatinine Ratio 19.3 (8-20) Glucose 159 H (70-100) mg/dL Lactic Acid (0.5-2.0) mmol/L Calcium 8.9 (8.6-10.3) mg/dL Total Bilirubin 0.90 (0.2-1.0) mg/dL AST 25 (13-39) U/L ALT 12 (7-52) U/L Alkaline Phosphatase 124 H (34-104) U/L Total Creatine Kinase 73 (10-223) U/L Troponin I 1.23 H* (<0.04) ng/mL B-Natriuretic Peptide ( - 100) pg/mL Total Protein 7.1 (6.4-8.9) g/dL Albumin 3.6 (3.2-5.2) g/dL Globulin 3.5 (2-4) g/dL Albumin/Globulin Ratio 1.0 (1-3) 03/17/16 03/17/16 03/17/16 Range/Units 09:40 09:40 10:02 WBC (3.5-10.8) 10^3/ul RBC (4.0-5.4) 10^6/ul Hgb (12.0-16.0) g/dl Hct (35-47) % MCV (80-97) fL MCH (27-31) pg MCHC (31-36) g/dl RDW (10.5-15) % Plt Count (150-450) 10^3/ul MPV (7.4-10.4) um3 Neut % (Auto) (38-83) % Lymph % (Auto) (25-47) % Caroline % (Auto) (1-9) % Eos % (Auto) (0-6) % Baso % (Auto) (0-2) % Absolute Neuts (auto) (1.5-7.7) 10^3/ul Absolute Lymphs (auto) (1.0-4.8) 10^3/ul Absolute Monos (auto) (0-0.8) 10^3/ul Absolute Eos (auto) (0-0.6) 10^3/ul Absolute Basos (auto) (0-0.2) 10^3/ul Absolute Nucleated RBC 10^3/ul Nucleated RBC % INR (Anticoag Therapy) (0.89-1.11) APTT (26.0-36.3) seconds Patient Temperature Not Reportable ABG pH 7.42 (7.35-7.45) ABG pCO2 45 (35-45) mmHg ABG pO2 54 L* (80-100) mmHg ABG HCO3 27.7 (19-31) mmol/L ABG O2 Saturation 89.7 L (95-98) % ABG Base Excess 4.0 H (-2.0-2.0) Respiration Rate Not Reportable O2 Delivery Device nrb Ventilator Type Not Reportable Vent Mode Not Reportable FiO2 100 Inspiratory Time Not Reportable PEEP Not Reportable Pressure Support Not Reportable Pressure Control Not Reportable EPAP Not Reportable IPAP Not Reportable BiPAP Not Reportable Sodium (133-145) mmol/L Potassium (3.5-5.0) mmol/L Chloride (101-111) mmol/L Carbon Dioxide (22-32) mmol/L Anion Gap (2-11) mmol/L BUN (6-24) mg/dL Creatinine (0.51-0.95) mg/dL Est GFR ( Amer) (>60) Est GFR (Non-Af Amer) (>60) BUN/Creatinine Ratio (8-20) Glucose (70-100) mg/dL Lactic Acid 1.2 (0.5-2.0) mmol/L Calcium (8.6-10.3) mg/dL Total Bilirubin (0.2-1.0) mg/dL AST (13-39) U/L ALT (7-52) U/L Alkaline Phosphatase (34-104) U/L Total Creatine Kinase (10-223) U/L Troponin I (<0.04) ng/mL B-Natriuretic Peptide 157 H ( - 100) pg/mL Total Protein (6.4-8.9) g/dL Albumin (3.2-5.2) g/dL Globulin (2-4) g/dL Albumin/Globulin Ratio (1-3) 03/17/ Range/Units 11:08 WBC (3.5-10.8) 10^3/ul RBC (4.0-5.4) 10^6/ul Hgb (12.0-16.0) g/dl Hct (35-47) % MCV (80-97) fL MCH (27-31) pg MCHC (31-36) g/dl RDW (10.5-15) % Plt Count (150-450) 10^3/ul MPV (7.4-10.4) um3 Neut % (Auto) (38-83) % Lymph % (Auto) (25-47) % Caroline % (Auto) (1-9) % Eos % (Auto) (0-6) % Baso % (Auto) (0-2) % Absolute Neuts (auto) (1.5-7.7) 10^3/ul Absolute Lymphs (auto) (1.0-4.8) 10^3/ul Absolute Monos (auto) (0-0.8) 10^3/ul Absolute Eos (auto) (0-0.6) 10^3/ul Absolute Basos (auto) (0-0.2) 10^3/ul Absolute Nucleated RBC 10^3/ul Nucleated RBC % INR (Anticoag Therapy) (0.89-1.11) APTT (26.0-36.3) seconds Patient Temperature Not Reportable ABG pH 7.41 (7.35-7.45) ABG pCO2 40 (35-45) mmHg ABG pO2 63 L (80-100) mmHg ABG HCO3 25.3 (19-31) mmol/L ABG O2 Saturation 94.3 L (95-98) % ABG Base Excess 0.7 (-2.0-2.0) Respiration Rate 14 O2 Delivery Device Ventilator Type Not Reportable Vent Mode st FiO2 100 Inspiratory Time Not Reportable PEEP Not Reportable Pressure Support Not Reportable Pressure Control Not Reportable EPAP 5 IPAP 14 BiPAP Not Reportable Sodium (133-145) mmol/L Potassium (3.5-5.0) mmol/L Chloride (101-111) mmol/L Carbon Dioxide (22-32) mmol/L Anion Gap (2-11) mmol/L BUN (6-24) mg/dL Creatinine (0.51-0.95) mg/dL Est GFR ( Amer) (>60) Est GFR (Non-Af Amer) (>60) BUN/Creatinine Ratio (8-20) Glucose (70-100) mg/dL Lactic Acid (0.5-2.0) mmol/L Calcium (8.6-10.3) mg/dL Total Bilirubin (0.2-1.0) mg/dL AST (13-39) U/L ALT (7-52) U/L Alkaline Phosphatase (34-104) U/L Total Creatine Kinase (10-223) U/L Troponin I (<0.04) ng/mL B-Natriuretic Peptide ( - 100) pg/mL Total Protein (6.4-8.9) g/dL Albumin (3.2-5.2) g/dL Globulin (2-4) g/dL Albumin/Globulin Ratio (1-3) Microbiology and Other Data: Microbiology 03/17/16 14:00 Nasal Screen MRSA (PCR)(NIMA) - Final Nasal Mrsa Negative Assess/Plan/Problems-Billing Assessment: 75 year old woman admitted to [facility] [place] [facility] with hypoxic respiratory respiratory failure. - Patient Problems (1) Respiratory failure Current Visit: Yes Status: Acute Code(s): J96.90 - RESPIRATORY FAILURE, UNSP , UNSP W HYPOXIA OR HYPERCAPNIA SNOMED Code(s): 662124700 Comment: Improved and off vapotherm. Hospice saw yesterdayand will try to arrange at home hospice.Likely next . Place comfort care orders. (2) Metastatic lung cancer (metastasis from lung to other site) Current Visit: Yes Status: Acute Code(s): C34.90 - MALIGNANT NEOPLASM OF UNSP PART OF UNSP BRONCHUS OR LUNG SNOMED Code(s): 314745121 Comment: See above . (3) NSTEMI (non-ST elevated myocardial infarction) Current Visit: Yes Status: Acute Code(s): I21.4 - NON-ST ELEVATION (NSTEMI) MYOCARDIAL INFARCTION SNOMED Code(s): 95732594 Comment: Likely from demand ischemia from hypoxic respiratory failure. Not actively managing as emphasis on comfort care. (4) DVT prophylaxis Current Visit: No Status: Acute Code(s): EOJ7500 - SNOMED Code(s): 500506691 Comment: Dequan (5) DNR (do not resuscitate) Current Visit: No Status: Acute
[2016-03-26] MEDS: Enoxaparin(*) 40 MG/0.4 ML SYR SUBCUT SCH (15:32)
[2016-03-26] MEDS: LORazepam TAB(*) 0.5 MG PO PRN (21:43)
[2016-03-27] MEDS: Ondansetron INJ* 2 MG/ML VIAL IV PRN (00:15)
[2016-03-27] MEDS: Morphine INJ* 2 MG/ML 1 ML CARPUJECT IV PRN ×5 (00:16→20:33)
[2016-03-27 00:35] VITALS: BP 118/47
[2016-03-27] MEDS ORDERED: PROCHLORPERAZINE INJ 5 MG/ML 2 ML VIAL IV PRN (02:14)
[2016-03-27] MEDS ORDERED: LORazepam INJ* 2 MG/ML 1 ML VIAL ONE (02:23)
[2016-03-27] MEDS ORDERED: PROCHLORPERAZINE INJ 5 MG/ML 2 ML VIAL ONE (02:25)
[2016-03-27] MEDS: LORazepam INJ* 2 MG/ML 1 ML VIAL IV PUSH PRN ×2 (02:28→20:44)
[2016-03-27] MEDS: Sertraline* 100 MG TAB PO SCH (11:30)
[2016-03-27] MEDS: LORazepam TAB(*) 0.5 MG PO PRN (13:52)
--- NOTE | 2016-03-27 15:47 | PN ---
Subjective Date of Service: 03/27/16 Interval History: Patient slept well and feels better. Objective Active Medications: Acetaminophen (Tylenol Tab*) 650 mg PO Q6H PRN PRN Reason: PAIN Last Admin: 03/24/16 13:53 Dose: 650 mg Albuterol (Ventolin 2.5 Mg/3 Ml Neb.Norma*) 2.5 mg INH Q4H PRN PRN Reason: SOB/WHEEZING Diphenhydramine HCl (Benadryl Po*) 50 mg PO BEDTIME PRN PRN Reason: SLEEP Last Admin: 03/25/16 21:27 Dose: 50 mg Lorazepam (Ativan Tab(*)) 0.5 mg PO Q6H PRN PRN Reason: ANXIETY Last Admin: 03/27/16 13:52 Dose: 0.5 mg Lorazepam (Ativan Inj*) 1 mg IV PUSH Q2HR PRN PRN Reason: ANXIETY Last Admin: 03/27/16 02:28 Dose: 1 mg Morphine Sulfate (Morphine Inj (Syringe)*) 2 mg IV Q1H PRN PRN Reason: PAIN Last Admin: 03/27/16 13:52 Dose: 2 mg Morphine Sulfate (Morphine Oral Concentrate*) 2.5 mg PO Q2H PRN PRN Reason: PAIN Ondansetron HCl (Zofran Inj*) 4 mg IV Q6H PRN PRN Reason: NAUSEA Last Admin: 03/27/16 00:15 Dose: 4 mg Prochlorperazine Edisylate (Compazine Inj*) 5 mg IV Q6H PRN PRN Reason: NAUSEA/VOMITING Last Admin: 03/27/16 02:29 Dose: 5 mg Sertraline HCl (Zoloft*) 100 mg PO DAILY MARICARMEN Last Admin: 03/27/16 11:30 Dose: 100 mg Trazodone HCl (Desyrel Tab*) 50 mg PO BEDTIME PRN PRN Reason: insomnia Last Admin: 03/25/16 21:28 Dose: 50 mg Vital Signs 03/26/16 03/26/16 03/26/16 19:39 20:41 21:38 Temperature Pulse Rate 70 Respiratory 18 8 22 Rate Blood Pressure (mmHg) O2 Sat by Pulse 75 Oximetry 03/26/16 03/26/16 03/26/16 21:43 22:38 23:43 Temperature Pulse Rate Respiratory 22 22 18 Rate Blood Pressure (mmHg) O2 Sat by Pulse Oximetry 03/27/16 03/27/16 03/27/16 00:16 00:33 01:16 Temperature 97.3 F Pulse Rate 90 Respiratory 18 15 18 Rate Blood Pressure 118/47 (mmHg) O2 Sat by Pulse Oximetry 03/27/16 03/27/16 03/27/16 02:05 02:28 03:05 Temperature Pulse Rate Respiratory 18 16 14 Rate Blood Pressure (mmHg) O2 Sat by Pulse Oximetry 03/27/16 03/27/16 03/27/16 03:28 08:00 13:52 Temperature Pulse Rate Respiratory 14 16 22 Rate Blood Pressure (mmHg) O2 Sat by Pulse Oximetry 03/27/16 14:52 Temperature Pulse Rate Respiratory 18 Rate Blood Pressure (mmHg) O2 Sat by Pulse Oximetry Oxygen Devices in Use Now: Nasal Cannula - Salter at 15 Appearance: Elderly woman sitting up in bed in NAD Eyes: No Scleral Icterus Ears/Nose/Mouth/Throat: Clear Oropharnyx Neck: No Thyroid Enlargement, Masses Respiratory: - - Bilateral rales Cardiovascular: - - S1S2 [place] Abdominal: NL Sounds; No Tenderness; No Distention, No Hepatosplenomegaly Lymphatic: No Cervical Adenopathy Extremities: No Clubbing, Cyanosis Skin: No Rash or Ulcers Neurological: Alert and Oriented x 3 Result Diagrams: 03/20/16 05:00 03/20/16 05:00 Additional Lab and Data: Lab Results 03/17/16 03/17/16 03/17/16 Range/Units 09:40 09:40 09:40 WBC 11.3 H (3.5-10.8) 10^3/ul RBC 4.92 (4.0-5.4) 10^6/ul Hgb 13.9 (12.0-16.0) g/dl Hct 43 (35-47) % MCV 87 (80-97) fL MCH 28 (27-31) pg MCHC 33 (31-36) g/dl RDW 14 (10.5-15) % Plt Count 236 (150-450) 10^3/ul MPV 7 L (7.4-10.4) um3 Neut % (Auto) 86.7 H (38-83) % Lymph % (Auto) 5.1 L (25-47) % [place] % (Auto) 6.2 (1-9) % Eos % (Auto) 1.5 (0-6) % Baso % (Auto) 0.5 (0-2) % Absolute Neuts (auto) 9.7 H (1.5-7.7) 10^3/ul Absolute Lymphs (auto) 0.6 L (1.0-4.8) 10^3/ul Absolute Monos (auto) 0.7 (0-0.8) 10^3/ul Absolute Eos (auto) 0.2 (0-0.6) 10^3/ul Absolute Basos (auto) 0.1 (0-0.2) 10^3/ul Absolute Nucleated RBC 0 10^3/ul Nucleated RBC % 0 INR (Anticoag Therapy) 1.07 (0.89-1.11) APTT 27.0 (26.0-36.3) seconds Patient Temperature ABG pH (7.35-7.45) ABG pCO2 (35-45) mmHg ABG pO2 (80-100) mmHg ABG HCO3 (19-31) mmol/L ABG O2 Saturation (95-98) % ABG Base Excess (-2.0-2.0) Respiration Rate O2 Delivery Device Ventilator Type Vent Mode FiO2 Inspiratory Time PEEP Pressure Support Pressure Control EPAP IPAP BiPAP Sodium 136 (133-145) mmol/L Potassium 3.6 (3.5-5.0) mmol/L Chloride 102 (101-111) mmol/L Carbon Dioxide 26 (22-32) mmol/L Anion Gap 8 (2-11) mmol/L BUN 11 (6-24) mg/dL Creatinine 0.57 (0.51-0.95) mg/dL Est GFR ( Amer) 132.6 (>60) Est GFR (Non-Af Amer) 103.1 (>60) BUN/Creatinine Ratio 19.3 (8-20) Glucose 159 H (70-100) mg/dL Lactic Acid (0.5-2.0) mmol/L Calcium 8.9 (8.6-10.3) mg/dL Total Bilirubin 0.90 (0.2-1.0) mg/dL AST 25 (13-39) U/L ALT 12 (7-52) U/L Alkaline Phosphatase 124 H (34-104) U/L Total Creatine Kinase 73 (10-223) U/L Troponin I 1.23 H* (<0.04) ng/mL B-Natriuretic Peptide ( - 100) pg/mL Total Protein 7.1 (6.4-8.9) g/dL Albumin 3.6 (3.2-5.2) g/dL Globulin 3.5 (2-4) g/dL Albumin/Globulin Ratio 1.0 (1-3) 03/17/16 03/17/16 03/17/16 Range/Units 09:40 09:40 10:02 WBC (3.5-10.8) 10^3/ul RBC (4.0-5.4) 10^6/ul Hgb (12.0-16.0) g/dl Hct (35-47) % MCV (80-97) fL MCH (27-31) pg MCHC (31-36) g/dl RDW (10.5-15) % Plt Count (150-450) 10^3/ul MPV (7.4-10.4) um3 Neut % (Auto) (38-83) % Lymph % (Auto) (25-47) % [place] % (Auto) (1-9) % Eos % (Auto) (0-6) % Baso % (Auto) (0-2) % Absolute Neuts (auto) (1.5-7.7) 10^3/ul Absolute Lymphs (auto) (1.0-4.8) 10^3/ul Absolute Monos (auto) (0-0.8) 10^3/ul Absolute Eos (auto) (0-0.6) 10^3/ul Absolute Basos (auto) (0-0.2) 10^3/ul Absolute Nucleated RBC 10^3/ul Nucleated RBC % INR (Anticoag Therapy) (0.89-1.11) APTT (26.0-36.3) seconds Patient Temperature Not Reportable ABG pH 7.42 (7.35-7.45) ABG pCO2 45 (35-45) mmHg ABG pO2 54 L* (80-100) mmHg ABG HCO3 27.7 (19-31) mmol/L ABG O2 Saturation 89.7 L (95-98) % ABG Base Excess 4.0 H (-2.0-2.0) Respiration Rate Not Reportable O2 Delivery Device nrb Ventilator Type Not Reportable Vent Mode Not Reportable FiO2 100 Inspiratory Time Not Reportable PEEP Not Reportable Pressure Support Not Reportable Pressure Control Not Reportable EPAP Not Reportable IPAP Not Reportable BiPAP Not Reportable Sodium (133-145) mmol/L Potassium (3.5-5.0) mmol/L Chloride (101-111) mmol/L Carbon Dioxide (22-32) mmol/L Anion Gap (2-11) mmol/L BUN (6-24) mg/dL Creatinine (0.51-0.95) mg/dL Est GFR ( Amer) (>60) Est GFR (Non-Af Amer) (>60) BUN/Creatinine Ratio (8-20) Glucose (70-100) mg/dL Lactic Acid 1.2 (0.5-2.0) mmol/L Calcium (8.6-10.3) mg/dL Total Bilirubin (0.2-1.0) mg/dL AST (13-39) U/L ALT (7-52) U/L Alkaline Phosphatase (34-104) U/L Total Creatine Kinase (10-223) U/L Troponin I (<0.04) ng/mL B-Natriuretic Peptide 157 H ( - 100) pg/mL Total Protein (6.4-8.9) g/dL Albumin (3.2-5.2) g/dL Globulin (2-4) g/dL Albumin/Globulin Ratio (1-3) 03/17/16 Range/Units 11:08 WBC (3.5-10.8) 10^3/ul RBC (4.0-5.4) 10^6/ul Hgb (12.0-16.0) g/dl Hct (35-47) % MCV (80-97) fL MCH (27-31) pg MCHC (31-36) g/dl RDW (10.5-15) % Plt Count (150-450) 10^3/ul MPV (7.4-10.4) um3 Neut % (Auto) (38-83) % Lymph % (Auto) (25-47) % [place] % (Auto) (1-9) % Eos % (Auto) (0-6) % Baso % (Auto) (0-2) % Absolute Neuts (auto) (1.5-7.7) 10^3/ul Absolute Lymphs (auto) (1.0-4.8) 10^3/ul Absolute Monos (auto) (0-0.8) 10^3/ul Absolute Eos (auto) (0-0.6) 10^3/ul Absolute Basos (auto) (0-0.2) 10^3/ul Absolute Nucleated RBC 10^3/ul Nucleated RBC % INR (Anticoag Therapy) (0.89-1.11) APTT (26.0-36.3) seconds Patient Temperature Not Reportable ABG pH 7.41 (7.35-7.45) ABG pCO2 40 (35-45) mmHg ABG pO2 63 L (80-100) mmHg ABG HCO3 25.3 (19-31) mmol/L ABG O2 Saturation 94.3 L (95-98) % ABG Base Excess 0.7 (-2.0-2.0) Respiration Rate 14 O2 Delivery Device Ventilator Type Not Reportable Vent Mode st FiO2 100 Inspiratory Time Not Reportable PEEP Not Reportable Pressure Support Not Reportable Pressure Control Not Reportable EPAP 5 IPAP 14 BiPAP Not Reportable Sodium (133-145) mmol/L Potassium (3.5-5.0) mmol/L Chloride (101-111) mmol/L Carbon Dioxide (22-32) mmol/L Anion Gap (2-11) mmol/L BUN (6-24) mg/dL Creatinine (0.51-0.95) mg/dL Est GFR ( Amer) (>60) Est GFR (Non-Af Amer) (>60) BUN/Creatinine Ratio (8-20) Glucose (70-100) mg/dL Lactic Acid (0.5-2.0) mmol/L Calcium (8.6-10.3) mg/dL Total Bilirubin (0.2-1.0) mg/dL AST (13-39) U/L ALT (7-52) U/L Alkaline Phosphatase (34-104) U/L Total Creatine Kinase (10-223) U/L Troponin I (<0.04) ng/mL B-Natriuretic Peptide ( - 100) pg/mL Total Protein (6.4-8.9) g/dL Albumin (3.2-5.2) g/dL Globulin (2-4) g/dL Albumin/Globulin Ratio (1-3) Microbiology and Other Data: Microbiology 03/17/16 14:00 Nasal Screen MRSA (PCR)(NIMA) - Final Nasal Mrsa Negative Assess/Plan/Problems-Billing Assessment: 75 year old [place] [facility] [place] respiratory failure. - Patient Problems (1) Respiratory failure Current Visit: Yes Status: Acute Code(s): J96.90 - RESPIRATORY FAILURE, UNSP , UNSP W HYPOXIA OR HYPERCAPNIA SNOMED Code(s): 949739447 Comment: Hospice saw and will likely go home on Hospice on .Continue comfort care orders. (2) Metastatic lung cancer (metastasis from lung to other site) Current Visit: Yes Status: Acute Code(s): C34.90 - MALIGNANT NEOPLASM OF UNSP PART OF UNSP BRONCHUS OR LUNG SNOMED Code(s): 135292676 Comment: See above . (3) NSTEMI (non-ST elevated myocardial infarction) Current Visit: Yes Status: Acute Code(s): I21.4 - NON-ST ELEVATION (NSTEMI) MYOCARDIAL INFARCTION SNOMED Code(s): 81582982 Comment: Likely from demand ischemia from hypoxic respiratory failure. Not actively managing as emphasis on comfort care. (4) DVT prophylaxis Current Visit: No Status: Acute Code(s): EXK1764 - SNOMED Code(s): 065537497 Comment: None with emphasis on comfort. (5) DNR (do not resuscitate) Current Visit: No Status: Acute
[2016-03-28] MEDS: Morphine INJ* 2 MG/ML 1 ML CARPUJECT IV PRN ×8 (01:03→22:34)
[2016-03-28] MEDS: LORazepam TAB(*) 0.5 MG PO PRN (03:38)
[2016-03-28] MEDS: Ondansetron INJ* 2 MG/ML VIAL IV PRN ×2 (05:59→18:34)
[2016-03-28] MEDS: Sertraline* 100 MG TAB PO SCH (09:26)
[2016-03-28] MEDS: LORazepam INJ* 2 MG/ML 1 ML VIAL IV PUSH PRN ×3 (12:42→22:34)
--- NOTE | 2016-03-28 13:48 | PN ---
Subjective Date of Service: 03/28/16 Interval History: Patient seen this afternoon. Apparently as per nursing the patient had an episode of SOB and hypoxia when her oxygen was off. Received morphine and ativan with improvement. Now she states she is just fatigued. Plan for hospice, apparently patient's family now interested in hospice residence. Family History: Unchanged from Admission Social History: Unchanged from Admission Past Medical History: Unchanged from Admission Objective Active Medications: Acetaminophen (Tylenol Tab*) 650 mg PO Q6H PRN PRN Reason: PAIN Last Admin: 03/24/16 13:53 Dose: 650 mg Albuterol (Ventolin 2.5 Mg/3 Ml Neb.Norma*) 2.5 mg INH Q4H PRN PRN Reason: SOB/WHEEZING Diphenhydramine HCl (Benadryl Po*) 50 mg PO BEDTIME PRN PRN Reason: SLEEP Last Admin: 03/25/16 21:27 Dose: 50 mg Lorazepam (Ativan Tab(*)) 0.5 mg PO Q6H PRN PRN Reason: ANXIETY Last Admin: 03/28/16 03:38 Dose: 0.5 mg Lorazepam (Ativan Inj*) 1 mg IV PUSH Q2HR PRN PRN Reason: ANXIETY Last Admin: 03/28/16 12:42 Dose: 1 mg Morphine Sulfate (Morphine Inj (Syringe)*) 2 mg IV Q1H PRN PRN Reason: PAIN Last Admin: 03/28/16 12:38 Dose: 2 mg Morphine Sulfate (Morphine Oral Concentrate*) 2.5 mg PO Q2H PRN PRN Reason: PAIN Ondansetron HCl (Zofran Inj*) 4 mg IV Q6H PRN PRN Reason: NAUSEA Last Admin: 03/28/16 05:59 Dose: 4 mg Prochlorperazine Edisylate (Compazine Inj*) 5 mg IV Q6H PRN PRN Reason: NAUSEA/VOMITING Last Admin: 03/27/16 02:29 Dose: 5 mg Sertraline HCl (Zoloft*) 100 mg PO DAILY MARICARMEN Last Admin: 03/28/16 09:26 Dose: 100 mg Trazodone HCl (Desyrel Tab*) 50 mg PO BEDTIME PRN PRN Reason: insomnia Last Admin: 03/25/16 21:28 Dose: 50 mg Vital Signs 03/27/16 03/27/1603/27/16 13:52 14:52 15:48 Respiratory 22 18 Rate O2 Sat by Pulse 75 Oximetry 03/27/16 03/27/16 03/27/16 15:52 18:48 19:48 Respiratory 14 22 24 Rate O2 Sat by Pulse Oximetry 03/27/16 03/27/16 03/27/16 20:00 20:33 20:44 Respiratory 22 24 23 Rate O2 Sat by Pulse Oximetry 03/27/16 03/27/16 03/28/16 21:33 21:44 01:03 Respiratory 22 22 28 Rate O2 Sat by Pulse Oximetry 03/28/16 03/28/16 03/28/16 02:03 03:38 04:38 Respiratory 24 26 24 Rate O2 Sat by Pulse Oximetry 03/28/16 03/28/16 03/28/16 05:38 05:59 06:59 Respiratory 24 26 20 Rate O2 Sat by Pulse Oximetry 03/28/16 03/28/16 03/28/16 08:00 12:38 12:42 Respiratory 20 28 26 Rate O2 Sat by Pulse Oximetry Oxygen Devices in Use Now: Nasal Cannula - Salter at 15 Appearance: Elderly, F, laying in bed in NAD Result Diagrams: 03/20/16 05:00 03/20/16 05:00 Additional Lab and Data: Lab Results 03/17/16 03/17/16 03/17/16 Range/Units 09:40 09:40 09:40 WBC 11.3 H (3.5-10.8) 10^3/ul RBC 4.92 (4.0-5.4) 10^6/ul Hgb 13.9 (12.0-16.0) g/dl Hct 43 (35-47) % MCV 87 (80-97) fL MCH 28 (27-31) pg MCHC 33 (31-36) g/dl RDW 14 (10.5-15) % Plt Count 236 (150-450) 10^3/ul MPV 7 L (7.4-10.4) um3 Neut % (Auto) 86.7 H (38-83) % Lymph % (Auto) 5.1 L (25-47) % [place] % (Auto) 6.2 (1-9) % Eos % (Auto) 1.5 (0-6) % Baso % (Auto) 0.5 (0-2) % Absolute Neuts (auto) 9.7 H (1.5-7.7) 10^3/ul Absolute Lymphs (auto) 0.6 L (1.0-4.8) 10^3/ul Absolute Monos (auto) 0.7 (0-0.8) 10^3/ul Absolute Eos (auto) 0.2 (0-0.6) 10^3/ul Absolute Basos (auto) 0.1 (0-0.2) 10^3/ul Absolute Nucleated RBC 0 10^3/ul Nucleated RBC % 0 INR (Anticoag Therapy) 1.07 (0.89-1.11) APTT 27.0 (26.0-36.3) seconds Patient Temperature ABG pH (7.35-7.45) ABG pCO2 (35-45) mmHg ABG pO2 (80-100) mmHg ABG HCO3 (19-31) mmol/L ABG O2 Saturation (95-98) % ABG Base Excess (-2.0-2.0) Respiration Rate O2 Delivery Device Ventilator Type Vent Mode FiO2 Inspiratory Time PEEP Pressure Support Pressure Control EPAP IPAP BiPAP Sodium 136 (133-145) mmol/L Potassium 3.6 (3.5-5.0) mmol/L Chloride 102 (101-111) mmol/L Carbon Dioxide 26 (22-32) mmol/L Anion Gap 8 (2-11) mmol/L BUN 11 (6-24) mg/dL Creatinine 0.57 (0.51-0.95) mg/dL Est GFR ( Amer) 132.6 (>60) Est GFR (Non-Af Amer) 103.1 (>60) BUN/Creatinine Ratio 19.3 (8-20) Glucose 159 H (70-100) mg/dL Lactic Acid (0.5-2.0) mmol/L Calcium 8.9 (8.6-10.3) mg/dL Total Bilirubin 0.90 (0.2-1.0) mg/dL AST 25 (13-39) U/L ALT 12 (7-52) U/L Alkaline Phosphatase 124 H (34-104) U/L Total Creatine Kinase 73 (10-223) U/L Troponin I 1.23 H* (<0.04) ng/mL B-Natriuretic Peptide ( - 100) pg/mL Total Protein 7.1 (6.4-8.9) g/dL Albumin 3.6 (3.2-5.2) g/dL Globulin 3.5 (2-4) g/dL Albumin/Globulin Ratio 1.0 (1-3) 03/17/16 03/17/16 03/17/16 Range/Units 09:40 09:40 10:02 WBC (3.5-10.8) 10^3/ul RBC (4.0-5.4) 10^6/ul Hgb (12.0-16.0) g/dl Hct (35-47) % MCV (80-97) fL MCH (27-31) pg MCHC (31-36) g/dl RDW (10.5-15) % Plt Count (150-450) 10^3/ul MPV (7.4-10.4) um3 Neut % (Auto) (38-83) % Lymph % (Auto) (25-47) % [place] % (Auto) (1-9) % Eos % (Auto) (0-6) % Baso % (Auto) (0-2) % Absolute Neuts (auto) (1.5-7.7) 10^3/ul Absolute Lymphs (auto) (1.0-4.8) 10^3/ul Absolute Monos (auto) (0-0.8) 10^3/ul Absolute Eos (auto) (0-0.6) 10^3/ul Absolute Basos (auto) (0-0.2) 10^3/ul Absolute Nucleated RBC 10^3/ul Nucleated RBC % INR (Anticoag Therapy) (0.89-1.11) APTT (26.0-36.3) seconds Patient Temperature Not Reportable ABG pH 7.42 (7.35-7.45) ABG pCO2 45 (35-45) mmHg ABG pO2 54 L* (80-100) mmHg ABG HCO3 27.7 (19-31) mmol/L ABG O2 Saturation 89.7 L (95-98) % ABG Base Excess 4.0 H (-2.0-2.0) Respiration Rate Not Reportable O2 Delivery Device nrb Ventilator Type Not Reportable Vent Mode Not Reportable FiO2 100 Inspiratory Time Not Reportable PEEP Not Reportable Pressure Support Not Reportable Pressure Control Not Reportable EPAP Not Reportable IPAP Not Reportable BiPAP Not Reportable Sodium (133-145) mmol/L Potassium (3.5-5.0) mmol/L Chloride (101-111) mmol/L Carbon Dioxide (22-32) mmol/L Anion Gap (2-11) mmol/L BUN (6-24) mg/dL Creatinine (0.51-0.95) mg/dL Est GFR ( Amer) (>60) Est GFR (Non-Af Amer) (>60) BUN/Creatinine Ratio (8-20) Glucose (70-100) mg/dL Lactic Acid 1.2 (0.5-2.0) mmol/L Calcium (8.6-10.3) mg/dL Total Bilirubin (0.2-1.0) mg/dL AST (13-39) U/L ALT (7-52) U/L Alkaline Phosphatase (34-104) U/L Total Creatine Kinase (10-223) U/L Troponin I (<0.04) ng/mL B-Natriuretic Peptide 157 H ( - 100) pg/mL Total Protein (6.4-8.9) g/dL Albumin (3.2-5.2) g/dL Globulin (2-4) g/dL Albumin/Globulin Ratio (1-3) 03/17/ Range/Units 11:08 WBC (3.5-10.8) 10^3/ul RBC (4.0-5.4) 10^6/ul Hgb (12.0-16.0) g/dl Hct (35-47) % MCV (80-97) fL MCH (27-31) pg MCHC (31-36) g/dl RDW (10.5-15) % Plt Count (150-450) 10^3/ul MPV (7.4-10.4) um3 Neut % (Auto) (38-83) % Lymph % (Auto) (25-47) % Archer % (Auto) (1-9) % Eos % (Auto) (0-6) % Baso % (Auto) (0-2) % Absolute Neuts (auto) (1.5-7.7) 10^3/ul Absolute Lymphs (auto) (1.0-4.8) 10^3/ul Absolute Monos (auto) (0-0.8) 10^3/ul Absolute Eos (auto) (0-0.6) 10^3/ul Absolute Basos (auto) (0-0.2) 10^3/ul Absolute Nucleated RBC 10^3/ul Nucleated RBC % INR (Anticoag Therapy) (0.89-1.11) APTT (26.0-36.3) seconds Patient Temperature Not Reportable ABG pH 7.41 (7.35-7.45) ABG pCO2 40 (35-45) mmHg ABG pO2 63 L (80-100) mmHg ABG HCO3 25.3 (19-31) mmol/L ABG O2 Saturation 94.3 L (95-98) % ABG Base Excess 0.7 (-2.0-2.0) Respiration Rate 14 O2 Delivery Device Ventilator Type Not Reportable Vent Mode st FiO2 100 Inspiratory Time Not Reportable PEEP Not Reportable Pressure Support Not Reportable Pressure Control Not Reportable EPAP 5 IPAP 14 BiPAP Not Reportable Sodium (133-145) mmol/L Potassium (3.5-5.0) mmol/L Chloride (101-111) mmol/L Carbon Dioxide (22-32) mmol/L Anion Gap (2-11) mmol/L BUN (6-24) mg/dL Creatinine (0.51-0.95) mg/dL Est GFR ( Amer) (>60) Est GFR (Non-Af Amer) (>60) BUN/Creatinine Ratio (8-20) Glucose (70-100) mg/dL Lactic Acid (0.5-2.0) mmol/L Calcium (8.6-10.3) mg/dL Total Bilirubin (0.2-1.0) mg/dL AST (13-39) U/L ALT (7-52) U/L Alkaline Phosphatase (34-104) U/L Total Creatine Kinase (10-223) U/L Troponin I (<0.04) ng/mL B-Natriuretic Peptide ( - 100) pg/mL Total Protein (6.4-8.9) g/dL Albumin (3.2-5.2) g/dL Globulin (2-4) g/dL Albumin/Globulin Ratio (1-3) Microbiology and Other Data: Microbiology 03/17/16 14:00 Nasal Screen MRSA (PCR)(NIMA) - Final Nasal Mrsa Negative Assess/Plan/Problems-Billing Assessment: 75 year old woman admitted to [facility] [place] with hypoxic respiratory respiratory failure, NSTEMI and metastatic lung cancer, now made comfort care and awaiting hospice placement - Patient Problems (1) Respiratory failure Current Visit: Yes Comment: Hospice saw and will likely go home on Hospice on . Continue comfort care orders. (2) Metastatic lung cancer (metastasis from lung to other site) Current Visit: Yes Comment: See above . Status and Disposition: Awaiting placement to home hospice or hospice residence.
[2016-03-29] MEDS: Morphine INJ* 2 MG/ML 1 ML CARPUJECT IV PRN ×5 (00:54→07:33)
[2016-03-29] MEDS: Ondansetron INJ* 2 MG/ML VIAL IV PRN (01:36)
[2016-03-29] MEDS: LORazepam INJ* 2 MG/ML 1 ML VIAL IV PUSH PRN ×2 (02:01→04:02)
[2016-03-29] MEDS: Sertraline* 100 MG TAB PO SCH ×2 (07:33→07:46)
--- NOTE | 2016-03-30 01:20 | DS ---
SUMMARY: DATE OF ADMISSION: 03/17/16 DATE OF : 03/29/16 PRIMARY CARE PHYSICIAN: ELVA Cooper. CAUSE OF : Metastatic lung cancer. HISTORY OF PRESENT ILLNESS AND HOSPITAL SUMMARY: Please see the full history and physical by Dr. Malick Burr for full details. Briefly, Ms. Hardy was a 75-year-old female with a history of COPD and recent admission with concerning for infiltrative lung disease and potential metastatic disease, presented to the hospital with shortness of breath and hypoxic respiratory failure. She also had an elevated troponin. She was initially admitted to the ICU, placed on BiPAP. Over the following day, she was transitioned to Vapotherm, still having significant oxygen needs. The decision was made to transition the patient to comfort care. She was transferred to the floor on 15 L of high flow. The initial plan had been to get the patient on home hospice; however, she in the hospital prior to discharge. TIME SPENT: Total time spent on this discharge, 30 minutes. This is the summary of the hospitalization. Please see the full medical record for further details. CC: ELVA Cooper* [id number]/CPS #: [id number]
== END 2016-03-29 07:40 | disposition expired ==
LOC: ED 09:24 → ICU 11:29 → MED 03-25 11:29
PROVIDERS: ADMIT Internal Medicine Critical Care Medicine; ATTEND Hospitalist
PROC: 5A09357 Assistance with Respiratory Ventilation, Less than 24 Consecutive Hours, Continuous Positive Airway Pressure (ICD-10-PCS; principal; 2016-03-17)
DX: I21.4 Non-ST elevation (NSTEMI) myocardial infarction (principal); J96.01 Acute respiratory failure with hypoxia; C34.90 Malignant neoplasm of unspecified part of unspecified bronchus or lung; C78.7 Secondary malignant neoplasm of liver and intrahepatic bile duct; C79.51 Secondary malignant neoplasm of bone; J44.9 Chronic obstructive pulmonary disease, unspecified; I10 Essential (primary) hypertension; K21.9 Gastro-esophageal reflux disease without esophagitis; M19.90 Unspecified osteoarthritis, unspecified site; N39.3 Stress incontinence (female) (male); M54.32 Sciatica, left side; F41.9 Anxiety disorder, unspecified; F32.9 Major depressive disorder, single episode, unspecified; Z96.641 Presence of right artificial hip joint; Z66 Do not resuscitate; Z51.5 Encounter for palliative care; Z99.81 Dependence on supplemental oxygen; Z87.891 Personal history of nicotine dependence; Z88.8 Allergy status to other drugs, medicaments and biological substances; Z88.6 Allergy status to analgesic agent; Z87.01 Personal history of pneumonia (recurrent); M79.1 Myalgia
CPT/HCPCS: 36415; 36600; 71010; 71275; 74177; 80048; 80053; 81003; 82550; 82553; 82803; 83605; 83690; 83735; 83874; 83880; 84100; 84484; 85025; 85610; 85730; 86140; 87040; 87641; 93005; 93306; 94660; 94760; 96361; 96365; 96372; 99284; A9270-GY; G0378; J0780; J1644; J1650; J1940; J2060; J2270; J2405; J2930; J3475; J7512; Q9967